=== PATIENT | male | born 1940 | race Caucasian/White ===

== ENCOUNTER → 2017-03-02 | Outpatient (CLI) | payer MEDICARE, OTHER ==
[~2017-03-02] MED LIST: LEVO500T80 PO; ONDA4TAB11 PO
--- NOTE | 2017-03-02 14:46 | Diagnostic Imaging Report ---
PROCEDURE: MRI lumbar spine. TECHNIQUE: Multiplanar, multisequence MRI of the lumbar spine was performed without contrast. INDICATION: Back pain. FINDINGS: Please note that there is a transitional lumbosacral junction with sacralization of L5 and small L5/S1 disc. There is satisfactory alignment of the lumbar spine. There are preserved vertebral body heights. There is disc desiccation at all levels. No significant disc height loss is seen. There is mild marrow edema along the upper endplate of L2 and to lesser extent L3 levels with no suspicious marrow signal abnormality. Also mild marrow edema around the facet joints at L4/L5 level bilaterally is seen. The cauda equina and conus medullaris appear grossly unremarkable. T12/L1: No disc herniation. There is no spinal canal or foraminal stenosis. L1/L2: There is a mild diffuse disc bulge and mild to moderate facet hypertrophy. There is mild central canal stenosis reducing the AP dimension of the canal to 9.8 mm. No significant lateral recess stenosis. The foramina demonstrate no narrowing. L2/L3: There is a diffuse disc bulge and moderate facet hypertrophy. There is diffuse disc bulge and bilateral moderate facet hypertrophy. There is mild to moderate central canal stenosis reducing the AP dimension of the canal to 8.4 mm. There is mild to moderate lateral recess stenosis also seen bilaterally. The foramina demonstrate mild narrowing bilaterally. L3/L4: There is a diffuse disc bulge and bilateral moderate facet hypertrophy. There is central canal stenosis of mild to moderate degree reducing the AP dimension of the canal to 8.9 mm. There is bilateral moderate lateral recess stenosis abutting the descending L4 nerve roots. There is bilateral foraminal stenosis moderate to severe on the left and moderate on the right side. L4/L5: There is a diffuse disc bulge asymmetric to the left and moderate to severe facet and ligamentous hypertrophy. This is associated with mild central canal stenosis reducing the AP dimension of the canal to 9.7 mm. There is bilateral severe lateral recess stenosis compressing the descending L5 nerve roots. The foramina demonstrate moderate stenosis on the left and mild to moderate stenosis on the right side. The far lateral aspect of the disc on both sides but more prominent on the left is abutting the exiting L4 spinal nerve on both sides. L5/S1: There is a small disc at this level with partial sacralization of L5 with prominent transverse processes articulating with the ileum. No disc herniation. No central canal or lateral recess stenosis. There is bilateral mild to moderate neural foraminal narrowing. IMPRESSION: 1. There is a transitional lumbosacral junction with a partially sacralized L5 and rudimentary disc at L5/S1 level. 2. There is bilateral severe lateral recess stenosis at L4/L5 level encroaching upon the descending L5 nerve roots seen. Other findings as above. Dictated by: Dictated on workstation # [id number]
== END ==
LOC: RAD 11:30
PROVIDERS: ATTEND Internal Medicine
DX: M48.06 Spinal stenosis, lumbar region (principal); M54.16 Radiculopathy, lumbar region
CPT/HCPCS: 72148

== ENCOUNTER 2017-06-01 10:41 | Emergency (ER) | payer MEDICARE, OTHER ==
[~2017-06-01] VITALS: Ht 188 cm; Wt 95.3 kg
[2017-06-01] MEDS ORDERED: LACTATED RINGERS 1,000 ML IV SCH (11:00)
--- NOTE | 2017-06-01 11:02 | ED General ---
General Stated Complaint: LUMBAR SURGERY/ DISORIENTATED Source of Information: Patient, Family Exam Limitations: No Limitations History of Present Illness Time Seen by Provider: 11:00 Initial Comments Brought to ER by his adult son with reports of general weakness. Patient had lumbar surgery at [facility] 7 days ago. He was having pain and tingling down the left leg prior to surgery. That symptom has significantly improved but he reports that he is so weak he can't hardly stand up. He reports minimal shortness of breath. No unilateral leg swelling. He states that he has not had a bowel movement in 7 days. States that he only dribbles when he tries to urinate that he cannot eat because he so nauseous. He denies fevers or chills or drainage from the incision. Timing/Duration: 6-7 Days Severity: Moderate Associated Systoms: No Chest Pain, No Cough, No Diaphoresis, No Fever/Chills, No Headaches, No Loss of Appetite, Malaise, Nausea/Vomiting, No Rash Allergies and Home Medications Allergies Coded Allergies: No Known Drug Allergies (Unverified , 10/04/15) Home Medications Levofloxacin 500 Mg Tablet, 500 MG PO DAILY, #6 Prescribed by: ROHINI RUIZ on 10/04/151739 Ondansetron 4 Mg Tab.rapdis, 4 MG PO Q6H PRN for NAUSEA/VOMITING, #8 Prescribed by: ROHINI RUIZ on 10/04/151739 Constitutional: see HPI, No chills, No diaphoresis, No fever, malaise, weakness EENTM: see HPI Respiratory: no symptoms reported Cardiovascular: no symptoms reported, No edema Genitourinary: no symptoms reported Musculoskeletal: see HPI, back pain (incisional pain rated at 5 out of 10) Skin: no symptoms reported Psychiatric/Neurological: No Symptoms Reported Hematologic/Lymphatic: No Symptoms Reported Immunological/Allergic: no symptoms reported Past Dgyjeeq-Xzamqv-Ymhmqq Hx Patient Social History Recent Foreign Travel: No Contact w/Someone Who Travel: No Surgeries HX Surgeries: No Respiratory Hx Respiratory Disorders: No Cardiovascular Hx Cardiac Disorders: Yes Cardiac Disorders: High Cholesterol Neurological Hx Neurological Disorders: No Gastrointestinal Hx Gastrointestinal Disorders: No Musculoskeletal Hx Musculoskeletal Disorders: No Endocrine Hx Endocrine Disorders: No HEENT HX ENT Disorders: No Cancer Hx Cancer: No Psychosocial Hx Psychiatric Problems: No Family Medical History Significant Family History: No Pertinent Family Hx Physical Exam Vital Signs Vital Sign - Last 12Hours 06/01/17 10:45 Temp 97.0 Pulse 88 Resp 16 B/P (MAP) 119/79 Pulse Ox 97 O2 Delivery Room Air Capillary Refill : General Appearance: No Apparent Distress, WD/WN, Other (he does appear very weak and requires assistance to get out of the wheelchair into the bed. Keeps his eyes closed when talking.) Eyes: Bilateral Eye EOMI, Bilateral Eye Normal Inspection, Bilateral Eye PERRL HEENT: PERRL/EOMI, TMs Normal Neck: Full Range of Motion, Normal Inspection Respiratory: Lungs Clear, Normal Breath Sounds, No Accessory Muscle Use, No Respiratory Distress Cardiovascular: Regular Rate, Rhythm, Normal Peripheral Pulses Gastrointestinal: Non Tender, Soft, Other (hypoactive bowel sounds. Abdomen is flat soft and nontender however.) Back: Normal Inspection, Other (midline lumbar incision clean dry and intact without surrounding erythema or drainage) Extremity: Normal Capillary Refill, Normal Inspection, No Pedal Edema Neurologic/Psychiatric: Alert, Oriented x3, No Motor/Sensory Deficits Skin: Normal Color, Warm/Dry Progress/Results/Core Measures Results/Orders Lab Results Laboratory Tests Test 06/01/17 10:56 06/01/17 12:52 Range/Units White Blood Count 8.1 4.3-11.0 10^3/uL Red Blood Count 4.90 4.35-5.85 10^6/uL Hemoglobin 14.8 13.3-17.7 G/DL Hematocrit 45 40-54 % Mean Corpuscular Volume 91 80-99 FL Mean Corpuscular Hemoglobin 30 25-34 PG Mean Corpuscular Hemoglobin Concent 33 32-36 G/DL Red Cell Distribution Width 13.0 10.0-14.5 % Platelet Count 247 130-400 10^3/uL Mean Platelet Volume 10.3 7.4-10.4 FL Neutrophils (%) (Auto) 61 42-75 % Lymphocytes (%) (Auto) 25 12-44 % Monocytes (%) (Auto) 9 0-12 % Eosinophils (%) (Auto) 4 0-10 % Basophils (%) (Auto) 1 0-10 % Neutrophils # (Auto) 4.9 1.8-7.8 X 10^3 Lymphocytes # (Auto) 2.1 1.0-4.0 X 10^3 Monocytes # (Auto) 0.8 0.0-1.0 X 10^3 Eosinophils # (Auto) 0.4 H 0.0-0.3 10^3/uL Basophils # (Auto) 0.1 0.0-0.1 10^3/uL Sodium Level 136 135-145 MMOL/L Potassium Level 4.0 3.6-5.0 MMOL/L Chloride Level 103 98-107 MMOL/L Carbon Dioxide Level 26 21-32 MMOL/L Anion Gap 7 5-14 MMOL/L Blood Urea Nitrogen 17 7-18 MG/DL Creatinine 0.98 0.60-1.30 MG/DL Estimat Glomerular Filtration Rate > 60 BUN/Creatinine Ratio 17 Glucose Level 93 70-105 MG/DL Calcium Level 9.7 8.5-10.1 MG/DL Total Bilirubin 0.6 0.1-1.0 MG/DL Aspartate Amino Transf (AST/SGOT) 24 5-34 U/L Alanine Aminotransferase (ALT/SGPT) 31 0-55 U/L Alkaline Phosphatase 87 40-136 U/L Troponin I < 0.30 <0.30 NG/ML Total Protein 6.8 6.4-8.2 GM/DL Albumin 3.8 3.2-4.5 GM/DL Urine Color YELLOW Urine Clarity CLEAR Urine pH 5 5-9 Urine Specific Avis 1.015 L 1.016-1.022 Urine Protein NEGATIVE NEGATIVE Urine Glucose (UA) NEGATIVE NEGATIVE Urine Ketones NEGATIVE NEGATIVE Urine Nitrite NEGATIVE NEGATIVE Urine Bilirubin NEGATIVE NEGATIVE Urine Urobilinogen NORMAL NORMAL MG/DL Urine Leukocyte Esterase NEGATIVE NEGATIVE Urine RBC (Auto) NEGATIVE NEGATIVE Urine RBC NONE /HPF Urine WBC NONE /HPF Urine Squamous Epithelial Cells RARE /HPF Urine Crystals NONE /LPF Urine Bacteria NEGATIVE /HPF Urine Casts NONE /LPF Urine Mucus NEGATIVE /LPF Urine Culture Indicated NO My Orders Orders - KEN CUMMINGS [employer] Cbc With Automated Diff (06/01/17 10:59) Comprehensive Metabolic Panel (06/01/17 10:59) Ua Culture If Indicated (06/01/17 10:59) Chest 1 View, Ap/Pa Only (06/01/17 10:59) Saline Lock/Iv-Start (06/01/17 10:59) Troponin I (06/01/17 10:59) Lactated Ringers (Lr 1000 Ml Iv Solution (06/01/17 11:00) Abdomen, Flat & Upright/Decub (06/01/17 11:43) Vital Signs/I&O Vital Sign - Last 12Hours 06/01/17 10:45 Temp 97.0 Pulse 88 Resp 16 B/P (MAP) 119/79 Pulse Ox 97 O2 Delivery Room Air Diagnostic Imaging Diagonstic Imaging: Xray Plain Films/CT/US/NM/MRI: chest Comments NAME: BLESSING SYKES [facility] REC#: [id number] PT STATUS: REG ER : 1940 PHYSICIAN: KEN CUMMINGS APRN ADMIT DATE: 06/01/17/ER Draft Date of Exam:06/01/17 CHEST 1 VIEW, AP/PA ONLY INDICATION: Weakness Frontal chest obtained at 1128 hrs, and compared with 10/04/15. Heart is borderline in size. Mediastinal silhouette is unremarkable. The lungs are clear. There is no pneumothorax or pleural fluid. IMPRESSION: No acute process in the chest. Dictated on workstation # [id number] Dict: 06/01/17 1137 Trans: 06/01/17 1141 ANOOP [id number] Interpreted by: DAYA MARCANO MD Electronically signed by: NAME: BLESSING SYKES [facility] REC#: [id number] PT STATUS: REG ER : 1940 PHYSICIAN: KEN CUMMINGS APRN ADMIT DATE: 06/01/17/ER Draft Date of Exam:06/01/17 ABDOMEN, FLAT & UPRIGHT/DECUB EXAMINATION: Upright and supine views of abdomen. INDICATION: Low back pain. FINDINGS: There is no pneumoperitoneum. No dilated bowel loops or significant air-fluid levels to suggest obstruction. Multiple calcifications in the pelvis are likely phleboliths. Moderate amounts of fecal material is seen in the rectum and the sigmoid colon. IMPRESSION: Moderate amounts of fecal material seen in the sigmoid colon and rectum. Dictated on workstation # [id number] Dict: 06/01/17 1218 Trans: 06/01/17 1225 TS [id number] Interpreted by: ANTHONY WOODS MD Electronically signed by: Departure Communication Progress Notes 1215-Son reports hes had father off of valium/flexeril for about 40 hours. Last oxycodone at 0730. I feel like the patient's weakness is secondary to oversedation from medication and the general weakness/deconditioning that follows a period of immobility. Impression Impression: Primary Impression: Physical deconditioning Additional Impression: General weakness Disposition: 01 HOME, SELF-CARE Condition: Stable Departure-Patient Inst. Referrals: MARY RUEDA DO (PCP/Family) Primary Care Physician KEN CUMMINGS APRN Jun 01, 2017 11:02
[2017-06-01 11:21] LABS: BASOPHILS # (AUTO) 0.1 10^3/uL (0.0-0.1); BASOPHILS % (AUTO) 1 % (0-10); EOSINOPHILS # (AUTO) 0.4 10^3/uL (0.0-0.3); EOSINOPHILS % (AUTO) 4 % (0-10); LYMPHOCYTES # (AUTO) 2.1 X 10^3 (1.0-4.0); LYMPHOCYTES % (AUTO) 25 % (12-44); MEAN CORPUSCULAR HEMOGLOBIN 30 PG (25-34); MEAN CORPUSCULAR HGB CONC 33 G/DL (32-36); MEAN CORPUSCULAR VOLUME 91 FL (80-99); MEAN PLATELET VOLUME 10.3 FL (7.4-10.4); MONOCYTES # (AUTO) 0.8 X 10^3 (0.0-1.0); MONOCYTES % (AUTO) 9 % (0-12); NEUTROPHILS # (AUTO) 4.9 X 10^3 (1.8-7.8); NEUTROPHILS % (AUTO) 61 % (42-75); PLATELET COUNT 247 10^3/uL (130-400); WHITE BLOOD COUNT 8.1 10^3/uL (4.3-11.0)
--- NOTE | 2017-06-01 11:42 | Diagnostic Imaging Report ---
INDICATION: Weakness Frontal chest obtained at 1128 hrs, and compared with 10/04/15. Heart is borderline in size. Mediastinal silhouette is unremarkable. The lungs are clear. There is no pneumothorax or pleural fluid. IMPRESSION: No acute process in the chest. Dictated by: Dictated on workstation # [id number]
[2017-06-01 11:48] LABS: ALANINE AMINOTRANSFERASE 31 U/L (0-55); ALBUMIN 3.8 GM/DL (3.2-4.5); ANION GAP 7 MMOL/L (5-14); ASPARTATE AMINO TRANSFERASE 24 U/L (5-34); BILIRUBIN,TOTAL 0.6 MG/DL (0.1-1.0); BLOOD UREA NITROGEN 17 MG/DL (7-18); BUN/CREATININE RATIO 17; CALCIUM 9.7 MG/DL (8.5-10.1); CARBON DIOXIDE 26 MMOL/L (21-32); CHLORIDE 103 MMOL/L (98-107); CREATININE SERUM 0.98 MG/DL (0.60-1.30); GFR ESTIMATED > 60; GLUCOSE 93 MG/DL (70-105); SODIUM 136 MMOL/L (135-145); TOTAL PROTEIN 6.8 GM/DL (6.4-8.2)
[2017-06-01 11:55] LABS: TROPONIN I < 0.30 NG/ML (<0.30)
--- NOTE | 2017-06-01 12:25 | Diagnostic Imaging Report ---
EXAMINATION: Upright and supine views of abdomen. INDICATION: Low back pain. FINDINGS: There is no pneumoperitoneum. No dilated bowel loops or significant air-fluid levels to suggest obstruction. Multiple calcifications in the pelvis are likely phleboliths. Moderate amounts of fecal material is seen in the rectum and the sigmoid colon. IMPRESSION: Moderate amounts of fecal material seen in the sigmoid colon and rectum. Dictated by: Dictated on workstation # [id number]
[2017-06-01 13:01] LABS: BILIRUBIN,URINE NEGATIVE (NEGATIVE); KETONES,URINE NEGATIVE (NEGATIVE); LEUKOCYTE ESTERASE ,URINE NEGATIVE (NEGATIVE); NITRITE,URINE NEGATIVE (NEGATIVE); PH,URINE 5 (5-9); PROTEIN,URINE NEGATIVE (NEGATIVE); UROBILINOGEN,URINE NORMAL (NORMAL)
[2017-06-01 13:14] LABS: SQUAMOUS EPITHELIAL CELL,UR RARE /HPF
[2017-06-01 15:46] VITALS: BP 100/61
[2017-06-01] MEDS ORDERED: TRAM50TA2 PO (16:28)
[2017-06-01] MEDS ORDERED: GABA-486 PO (16:28)
[2017-06-01] MEDS ORDERED: ALPR1TAB7 PO (16:28)
[2017-06-01] MEDS ORDERED: ESCI20TA45 PO (16:28)
[2017-06-01] MEDS ORDERED: OXYC-471 PO (16:28)
[2017-06-01] MEDS ORDERED: CYCL10TA9 PO (16:28)
[2017-06-01] MEDS ORDERED: ATOR80TA76 PO (16:28)
[2017-06-01] MEDS ORDERED: DIAZ5TAB3 PO (16:28)
[2017-06-01] MEDS ORDERED: DOCU100C37 PO (16:55)
[2017-06-01] MEDS ORDERED: RANI150T11 PO (16:55)
[2017-06-01] MEDS ORDERED: SENN8.6T62 PO (16:55)
[2017-06-03] MEDS ORDERED: NYST1000 PO (11:30)
== END 2017-06-01 15:46 | disposition other institution (70) ==
LOC: EDUNIT# 10:41 → ER 10:43
DX: R53.81 Other malaise (principal); R53.1 Weakness; E78.00 Pure hypercholesterolemia, unspecified; Z98.890 Other specified postprocedural states
CPT/HCPCS: 36415; 51702; 71010; 74020; 80053; 81000; 84484; 85025; 96360

== ENCOUNTER 2017-06-01 13:43 | Inpatient (IN) | payer MEDICARE, OTHER ==
[~2017-06-01] VITALS: Ht 188 cm; Wt 96.8 kg
[2017-06-01] MEDS ORDERED: CATHETER FLUSH 10 ML SYR IV PRN (16:00)
--- NOTE | 2017-06-01 16:24 | History & Physical-Hospitalist ---
HPI History of Present Illness: HPI/Chief Complaint CC: Weakness following lumbar spine surgery HPI: This is a 76yoWM clinic patient of Dr Cornell'aleksandra that had lumbar spine surgery by LARISSA at [facility] on 05/25/17 that was discharged the next day and went home with family but never felt like he was strong enough and began to have falls and wt loss. Labs were normal and vitals were normal so IRU was consulted and we have placed him there for recuperation. He was on Percocet and Flexeril but stopped those when he though those were making him weak. 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) Alcohol Use: Occasionally Uses Smoking Status: Unknown if Ever Smoked 2nd Hand Smoke Exposure: No Recent Foreign Travel: No Contact w/other who traveled: No Recent Hopitalizations: Yes (L4 L5 LUMBAR BACK SURGERY 05/25/17) Recent Infectious Disease Expo: No Seasonal Allergies Seasonal Allergies: No Surgeries HX Surgeries: Yes Surgeries: Orthopedic Respiratory Hx Respiratory Disorders: No Cardiovascular Hx Cardiovascular Disorders: Yes Cardiac Disorders: High Cholesterol Neurological Hx Neurological Disorders: No Genitourinary Hx Genitourinary Disorders: No Gastrointestinal Hx Gastrointestinal Disorders: No Musculoskeletal Hx Musculoskeletal Disorders: No Endocrine Hx Endocrine Disorders: No HEENT HX ENT Disorders: No Cancer Hx Cancer: No Psychosocial Hx Psychiatric Problems: No Family Medical History Significant Family History: No Pertinent Family Hx Review of Systems Constitutional: see HPI, dizziness, weakness EENTM: no symptoms reported Respiratory: no symptoms reported Cardiovascular: no symptoms reported Gastrointestinal: loss of appetite, nausea Genitourinary: no symptoms reported Musculoskeletal: back pain Skin: no symptoms reported Psychiatric/Neurological: No Symptoms Reported All Other Systems Reviewed Negative Unless Noted: Yes Physical Exam Physical Exam Vital Signs Capillary Refill : General Appearance: No Apparent Distress, WD/WN, Chronically ill, Thin, Other ( weak) Eyes: Bilateral Eye Normal Inspection, Bilateral Eye PERRL HEENT: PERRL/EOMI, Normal ENT Inspection, Pharynx Normal Neck: Full Range of Motion, Normal Inspection, Non Tender, Supple, Carotid Bruit Respiratory: Chest Non Tender, Lungs Clear, Normal Breath Sounds, No Accessory Muscle Use, No Respiratory Distress Cardiovascular: Regular Rate, Rhythm, No Edema, No Gallop, No JVD, No Murmur, Normal Peripheral Pulses Gastrointestinal: Normal Bowel Sounds, No Organomegaly, No Pulsatile Mass, Non Tender, Soft Back: Normal Inspection, No CVA Tenderness, No Vertebral Tenderness Extremity: Normal Capillary Refill, Normal Inspection, Normal Range of Motion, Non Tender, No Calf Tenderness, No Pedal Edema Neurologic/Psychiatric: Alert, Oriented x3, No Motor/Sensory Deficits, Normal Mood/Affect Skin: Normal Color, Warm/Dry Lymphatic: No Adenopathy Assessment/Plan Admission Diagnosis Assessment: Severe weakness following lumbar spine surgery POD # 7 Dehydration on exam HLP Depression DJD of spine Assessment and Plan Plan: IRU IVF 100 cc/hr Gentle pain meds BM regimen Increase PO nutrition Clinical Quality Measures DVT/VTE Risk/Contraindication: Risk Factor Score Per Nursin RFS Level Per Nursing on Admit: 3=High MEHREEN GALLAGHER DO Jun 01, 2017 16:24
[2017-06-01] MEDS ORDERED: CYCL10TA9 PO (16:28)
[2017-06-01] MEDS ORDERED: ALPR1TAB7 PO (16:28)
[2017-06-01] MEDS ORDERED: GABA-486 PO (16:28)
[2017-06-01] MEDS ORDERED: TRAM50TA2 PO (16:28)
[2017-06-01] MEDS ORDERED: OXYC-471 PO (16:28)
[2017-06-01] MEDS ORDERED: ESCI20TA45 PO (16:28)
[2017-06-01] MEDS ORDERED: ATOR80TA76 PO (16:28)
[2017-06-01] MEDS ORDERED: DIAZ5TAB3 PO (16:28)
[2017-06-01] MEDS ORDERED: ACETAMINOPHEN 500 MG TAB (TYLENOL) PO PRN (16:30)
[2017-06-01] MEDS ORDERED: LACTULOSE SYRUP 10GM/15ML (ENULOSE) 30ML UDC PO PRN (16:30)
[2017-06-01] MEDS ORDERED: ONDANSETRON 4 MG/2 ML (SDV) Z0FRAN IVP PRN (16:30)
[2017-06-01] MEDS ORDERED: IBUPROFEN TABLET 200 MG TAB PO PRN (16:30)
[2017-06-01 16:47] VITALS: BP 99/62
[2017-06-01] MEDS ORDERED: SENN8.6T62 PO (16:55)
[2017-06-01] MEDS ORDERED: DOCU100C37 PO (16:55)
[2017-06-01] MEDS ORDERED: RANI150T11 PO (16:55)
[2017-06-01] MEDS: NS IV 1000 ML 1,000 ML IV SCH (17:35)
[2017-06-01] MEDS ORDERED: ATORVASTATIN 80 MG (LIPITOR) TABLET PO SCH (21:00)
[2017-06-01] MEDS ORDERED: DOCUSATE SODIUM 100 MG (COLACE) CAP PO SCH (21:00)
[2017-06-01] MEDS ORDERED: SENNOSIDES 8.6 MG (SENOKOT) TAB PO SCH (21:00)
[2017-06-01] MEDS ORDERED: FAMOTIDINE 20 MG (PEPCID) TABLET PO SCH (21:00)
[2017-06-01] MEDS: NYSTATIN ORAL SUSP 5 ML UDC PO SCH (21:15)
[2017-06-02] MEDS: NS IV 1000 ML 1,000 ML IV SCH (03:39)
[2017-06-02 06:19] VITALS: BP 118/70
[2017-06-02] MEDS ORDERED: SENNOSIDES 8.6 MG (SENOKOT) TAB PO PRN (09:15)
[2017-06-02] MEDS ORDERED: ALPRAZolam 1 MG (XANAX) TAB PO PRN (09:15)
[2017-06-02] MEDS ORDERED: DOCUSATE SODIUM 100 MG (COLACE) CAP PO PRN (09:15)
--- NOTE | 2017-06-02 09:26 | Physical Therapy Evaluation ---
PT Evaluation-General Medical Diagnosis Admission Date Jun 01, 2017 at 13:43 Medical Diagnosis: weakness Onset Date: May 25, 2017 Therapy Diagnosis Therapy Diagnosis: impaired mobility, strength, endurance Height/Weight Height (Feet): 6 Height (Inches): 2.00 Weight (Pounds): 213 Weight (Ounces): 6.4 Precautions Precautions/Isolations: Fall Prevention, Standard Precautions Referral Physician: Brenton Reason for Referral: Evaluation/Treatment Medical History Additional Medical History high cholesterol, depression, DJD of spine Current History patient had lumbar spinal surgery on 05/25/17, went home the next day and had falls and weight loss Reviewed History: Yes Social History Home: Single Level Current Living Status: Spouse Entry Into Home: Stairs With Railing PT Steps Into Home: 2 Prior/Core FIM Prior Level of Function Functional [place] Measure 0=Not Assessed/NA 4=Minimal Assistance 1=Total Assistance 5=Supervision or Setup 2=Maximal Assistance 6=Modified [place] 3=Moderate Assistance 7=Complete [place] Bed Mobility: 7 Transfers (B,C,W/C) (FIM): 7 Gait: 7 before the surgery patient was not using an assistive device PT Evaluation-Current Subjective Patient in bed pre tx, agrees to PT, has pain of 6-7/10 in his low back Pt/Family Goals " to get stronger and decrease his pain" Objective Patient Orientation: Person, Place, Situation Attachments: IV ROM/Strength ROM Lower Extremities WNL except patient has very tight hamstrings Strenght Lower Extremities right lower extremity (hip flexion 4-/5, knee flexion 4/5, knee extension 4/5, dorsiflexion 4+/5), left lower extremity (hip flexion 4-/5, knee flexion 4/5, knee extension 4/5, dorsiflexion 4+/5) Integumentary/Posture Bowel Incontinence: No Neuromuscular (Tone, Coordination, Reflexes) WNL Sensory Vision: Wears Glasses Hearing: Functional Sensation Right Lower Extremit: Intact Sensation Left Lower Extremity: Intact Sensation Lower Extremities Patient has no complaints of numbness or tingling since his surgery. Transfers Functional [place] Measure 0=Not Assessed/NA 4=Minimal Assistance 1=Total Assistance 5=Supervision or Setup 2=Maximal Assistance 6=Modified [place] 3=Moderate Assistance 7=Complete IndependenceIRFPAI Quality Coding Scale 6 Independent with activity with or without an assistive device 5 Patient requires set up or clean up by helper. Patient completes activity by themselves 4 Supervision or touching assist (CGA). [place] provide cues , steadying assist 3 The helper provides less than half the effort to complete the activity 2 The helper provides more than half the effort to complete the activity 1 Dependent. The helper does all the effort to complete an activity 7 Patient refused to complete or attempt activity 9 The patient did not perform the activity before the current illness or injury 88 Not attempted due to Medical conditions or safety concerns Transfers (B, C, W/C) (FIM): 4 Scootin Rollin Roll Left to Right (QC): 4 Supine to/from Sit: 5 Sit to/from Stand: 4 Sit to Lying (QC): 4 Lying to Sitting/Side of Bed(Q: 4 Sit to Stand (QC): 4 Patient performs bed mobility with SBA, sit to stand with CGA, cues for safety and positioning Gait Does the Patient Walk?: Yes Mode of Locomotion: Walk Anticipated Mode of Locomotion: Walk Gait (FIM): 4 Walk 10 feet (QC): 4 Walk 50 ft with 2 Turns(QC): 4 Walk 150 ft (QC): 4 Walking 10ft/uneven surface-QC: 4 Distance: 150' Gait Level of Assist: 4 Gait Persons Needed: 1 Gait Assistive Device: FWW Comments/Gait Description Patient can ambulate 150' x2 with a rolling walker with CGA, including 50' with at least 2 turns of 90 degrees and 10' over an uneven surface. Ambulation is slightly antalgic and slow, some unsteadiness but no LOB. Wheelchair Training Does the Pt Use a Wheelchair?: No Stairs Stairs (FIM): 2 #of Steps: 4 Level of Assist: 4 1 Step (curb) (QC): 4 4 Steps (QC): 4 12 Steps (QC): 88 Patient can go up and down 4 steps using 2 handrails with CGA, cues for step placement Balance Sitting Static: Normal Sitting Dynamic: Normal Standing Static: Good Standing Dynamic: Good Picking up an Object (QC): 88 Treatment parallel bars exercises x20 (heel raises, mini-squats, hip abduction, marching) Assessment/Needs Patient has impaired mobility, strength, endurance post back surgery. Rehab Potential: Good PT Short Term Goals Short Term Goals Time Frame: Jun 09, 2017 Transfers (B,C,W/C) (FIM): 5 Gait (FIM): 5 Gait Distance Comment: 200' Gait Level of Assist: 5 Gait Assistive Device: FWW PT Glass Tube Bender Goals Mcc Goals PT Mcc Goals Time Frame: Jun 23, 2017 Transfers (B,C,W/C) (FIM): 6 Sit to Lying (QC): 6 Lying-Sitting on Side/Bed(QC): 6 Sit to Stand (QC): 6 Rollin Roll Left to Right (QC): 6 Car Transfer (QC): 4 Gait (FIM): 6 Distance: 300' Walk 10 feet (QC): 6 Walk 10ft-Uneven Surface(QC): 6 Walk 50ft with 2 Turns (QC): 6 Walk 150 ft (QC): 6 Gait Assistive Device: FWW Stairs (FIM): 4 # of Steps: 12 1 Step (curb) (QC): 4 4 Steps (QC): 4 12 Steps (QC): 4 Stairs Level Of Assist: 4 PT Plan Problem List Problem List: Activity Tolerance, Functional Strength, Safety, Balance, Gait, Transfer, Bed Mobility, ROM Treatment/Plan Treatment Plan: Continue Plan of Care Treatment Plan: Bed Mobility, Education, Functional Activity Tera, Functional Strength, Group Therapy, Gait, Safety, Therapeutic Exercise, Transfers Treatment Duration: Jun 23, 2017 Frequency: At least 5-7 days/Wk (IRF) Estimated Hrs Per Day: 1.5 hours per day Patient and/or Family Agrees t: Yes Safety Risks/Education Patient Education: Gait Training, Transfer Techniques, Steps, Correct Positioning, Safety Issues Teaching Recipient: Patient Teaching Methods: Demonstration, Discussion Response to Teaching: Reinforcement Needed Discharge Recommendations Plan Patient will perform bed mobility and transfer training, balance and endurance training, functional strengthening, stair training, gait training, and education , to improve functional mobility and independence at home. Therapy D/C Recommendations: Home w/ Family Support Time/GCodes Time In: 845 Time Out: 930 Total Billed Treatment Time: 45 Total Billed Treatment 1 visit EVL 15' EX 15' GT 15' KEISHA KYLE PT Jun 02, 2017 09:26
--- NOTE | 2017-06-02 09:29 | HISTORY AND PHYSICAL ---
DATE OF ADMISSION: 06/01/2017 CHIEF COMPLAINT: Difficulty with walking. 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 Ricardo MD neurosurgeon at [facility] in [place] on 05/25. He stayed overnight then went home with his and 2 sons. He had some postop confusion, weakness,dehydration and constipation, felt to be due to a combination of Flexeril and OxyIR and gabapentin. He presented to ED with an unsteady gait and abdominal x-ray revealed constipation. Chest x-ray was clear. Chemistry and CBC are within normal limits. He was felt be suffering from side effects of overmedication and postop opioid induced constipation. He has had a decline in his functional independence and was referred to Inpatient Rehabilitation Unit by Dr. Gallagher, hospitalist, PCP is Dr. Cornell. 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 His 2 sons who present to the unit with him. He did not use a cane or walker prior to this. CURRENT LEVEL OF FUNCTION: His mentation appears somewhat slowed but he is alert and oriented, appears somewhat groggy. He is min assist for transfers, and ambulation with hand-held assist. He has unsteady gait, impaired standing balance. He is set up for eating and grooming. Min assist for the remainder of his ADLs. He is reported to be continent of bladder. He has just had a bowel movement after prep was given. He is reported to be continent of bowel. He has had laser TURP in [place] in the past and reports no problems postoperatively. PAST MEDICAL HISTORY: 1. Hypercholesterolemia on Lipitor. 2. Depression on Lexapro. PAST SURGICAL HISTORY: As per above. No prior hip, knee or cervical spine surgery. FAMILY HISTORY: Noncontributory. SOCIAL HISTORY: Essentially as per above. Lives in [place], [place] with his spouse. REVIEW OF SYSTEMS: Ten-point review of systems significant for some grogginess, gait imbalance, and constipation. He reports significant improvement of his radicular pain into his legs postoperatively. He reports no difficulty voiding.C/O insomnia MEDICATIONS: 1. Tylenol 500 mg p.o. q.4 hours p.r.n. mild pain. 2. Ibuprofen 400 mg p.o. q.6 hours p.r.n. mild pain. 3. Lactulose 10 grams p.o. b.i.d. p.r.n. constipation. 4. Zofran 4 mg IV q.4 hours p.r.n. nausea, vomiting. 5. Tramadol 50 mg p.o. t.i.d. p.r.n. moderate pain. 5. Lipitor 20 mg po Q day 6.Lexapro 20 mg po Q day . PHYSICAL EXAMINATION: Significant for a pleasant male, appearing his stated age, appearing is somewhat groggy with somewhat slowed mentation, but alert and oriented in no acute distress. VITAL SIGNS: Within normal limits. He is afebrile. HEENT: Vision, speech, hearing, grossly intact. No oral lesion is noted. Speech is mildly slowed. NECK: Supple without mass. HEART: Regular rhythm. LUNGS: Clear. ABDOMEN: Soft, nontender. Bowel sounds present. EXTREMITIES: No lower leg edema. No calf tenderness. BACK: The incision site is healing well with debora in place. MUSCULOSKELETAL: The patient has functional active range of motion in all 4 extremities. NEUROLOGIC: Mentation appears mildly slowed. The patient appears somewhat groggy. He has impaired standing balance. Strength is functional both upper extremities.Lower extremity strength 4-/5 hip flex bilaterally knee extension 4/5, Dorsiflexion 4+/5 Sensation grossly intact to touch. Cognition appears somewhat slowed. Most likely medication related. IMPRESSION: 1. Ambulatory dysfunction secondary to postop confusion/constipation felt to be due to overmedication. 2. Postoperative constipation, improved with treatment. 3. Hypercholesteremia, on Lipitor. 4. Depression, on Lexapro. 5. BPH status post laser TURP. 6. Mild encephalopathy secondary to medication. PLAN: The patient is admitted for comprehensive program of inpatient rehabilitation with goal of maximizing level of functional independence prior to discharge home with spouse and home health care and sons. The patient will have PT/OT 90 minutes per day, each discipline, 5 days week for gait, strengthening, conditioning, balance, ADLs, any patient/family/caregiver training necessary, any adaptive equipment and training necessary. Speech therapy to do cognitive assessment and treat as indicated. He should clear and he is weaned from the muscle relaxants and uses less OxyIR. Rehabilitation nursing assist with bowel, bladder, skin, wound care, medication administration, pain management. care services manager to assist with discharge planning, community reentry. Follow-up with Dr. Gallagher in lieu of Dr. Cornell, PCP for any medical concerns. Therapy with fall precautions. ESTIMATED LENGTH OF STAY: 7 to 10 days. PROGNOSIS: Rehab prognosis appears good for goal of discharging home with spouse and home health care modified independent to supervision for ADLs and mobility skills. DIET: Regular. CODE STATUS: Full code. Job ID: [id number] Dictated Date: 06/01/2017 17:38:49 Water Plumber Date: 06/02/2017 09:01:18/kelby STARKEY
[2017-06-02] MEDS: NYSTATIN ORAL SUSP 5 ML UDC PO SCH ×4 (09:42→20:17)
[2017-06-02] MEDS: FAMOTIDINE 20 MG (PEPCID) TABLET PO SCH ×2 (09:42→20:17)
--- NOTE | 2017-06-02 10:01 | ST Cognitive Linguistic Eval ---
Speech Evaluation-General Medical Diagnosis Weakness s/p Lumbar Surgery Onset Date: May 25, 2017 Therapy Diagnosis Therapy Diagnosis: Cognitive Linguistic Function WNL Precautions Precautions/Isolations: Fall Prevention, Standard Precautions Referral Referring Physician: Dr. Deepak Farris Reason for Referral: Evaluation/Treatment Cognitive Evaluation Medical History Reviewed History: Yes Social History Current Living Status: Spouse Speech PLF-Current Status Prior Level of Function The patient denied challenges with cognition, speech, or language prior to admission or throughout his recent stay. Subjective The patient was recently admitted to [facility] Unit with a diagnosis of debility following lumbar surgery. The patient was laying in bed upon entrance and greeted the clinician appropriately. The patient was agreeable to participation in the cognitive evaluation on this date. Language Eval: Auditory Comprehends Simple Yes/No Ques: Functional Indent/Objects Multiple Reich: Functional Ident/Pics in Multiple Reich: Functional Follows 1-Step Commands: Functional Follows Complex Directions: Functional Follows General Conversations: Functional Language Eval: Verbal Language Completes Spontaneous Greeting: Functional Produces Auto, Serial Info: Functional Imitates Simple Words/Phrases: Functional Word Finding: Functional Requests Basic Needs: Functional States Basic Personal Info: Functional Expresses Complex Ideas: Functional Cognitive Patient Orientation The patient was independently oriented to month, day of week, date, and year. Objective Cognitive Domain Attention: WNL Memory: Mild Problem Solving: Functional Objective Impression The patient demonstrated cognitive linguistic skills grossly within normal limits and adequate for completion of ADL's. Communication/Social Cognition Comprehension: 5 Expression: 6 Social Interaction: 5 Problem Solvin Memory: 5 Speech Patient Assess Expression of Ideas/Wants: Expression (4) Understanding Vebal Content: Understands (4) Brief Interview-Mental Status: Yes Repetition of Three Words: Three (3) Temporal Orientation: Year: Correct (3) Temporal Orientation: Month: Accurate within 5 days(2) Temporal Orientation: Day: Correct (1) Recall : Wear to say "Sock": Yes, no cue required (2) Recall : Color: Yes, no cue required (2) Recall : Bed: No, could not recall (0) Speech-Plan Treatment Plan Speech Therapy Treatment Plan: Discontinue ST Evaluation, only. Frequency: Modified Program (IRF) Estimated Hrs Per Day: .25 hour per day (The patient will not receive skilled speech pathology services at this time.) Rehab Potential: Good Safety Risks/Education Teaching Recipient: Patient Teaching Methods: Discussion Response to Teaching: Verbalize Understanding Education Topics Provided: Results, Recommendations, Plan of Care Time Speech Therapy Time In: 08:05 Speech Therapy Time Out: 08:20 Total Billed Time: 15 Billed Treatment Time 1, ERICKA ARRIAZA Jun 02, 2017 10:00
--- NOTE | 2017-06-02 10:40 | Progress Note-Hospitalist ---
Progress Note HPI/CC on Admission CC: Weakness following lumbar spine surgery HPI: This is a 76yoWM clinic patient of Dr Cornell'aleksandra that had lumbar spine surgery by LARISSA at [facility] on 05/25/17 that was discharged the next day and went home with family but never felt like he was strong enough and began to have falls and wt loss. Labs were normal and vitals were normal so IRU was consulted and we have placed him there for recuperation. He was on Percocet and Flexeril but stopped those when he though those were making him weak. Progress Notes/Assess & Plan Date Seen 06/02/17 Time Seen by Provider: 09:45 Admission Dx/Process Assessment: Severe weakness following lumbar spine surgery POD # 7 Dehydration on exam HLP Depression DJD of spine Diagonsis/Assessment & Plan paste thinner: Fluids okay to DC Unsure if pt ate breakfast Pt feels better than yesterday. Pt was talking about stock market today Needs help with strengthening and balance Patient Interview: Pt feels much better today I informed pt that I will DC fluids if pt will eat and drink Pt was informed that I restarted most of his home meds Pt has had BMs Physical exam stable. Lungs sound perfect. Lower back dressing looks good. Stitches to come out next week. 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 Gallagher. OHRTENSIA GALLAGHER DO Jun 02, 2017 10:40
--- NOTE | 2017-06-02 11:28 | PM&R Post Admission Assessment ---
Post Admission Physician Asses The preadmission screen agrees with the post admission assessment that the patient is a good candidate for inpatient rehabilitation. The patient will have a comprehensive program of inpatient rehabilitation with a goal of maximizing level of functional independence prior to discharge home with spouse. The patient will have PT/OT ninety minutes per day, each discipline, five days a week for gait, strengthening, conditioning, balance, ADLs, any patient/family/caregiver training as necessary. Speech therapy to do cognitive assessment and treat as indicated. Rehabilitation nursing to assist with bowel, bladder, skin, wound care, medication administration, pain management. Delivery Consultant to assist with discharge planning, community reentry. SCD's for DVT prophylaxis. He appears to be well motivated to participate in three hours of therapy a day. He should be able to tolerate three hours of therapy a day from a medical and surgical standpoint. He should benefit from the three hours of therapy a day. He has a reasonable discharge plan, reasonable discharge rehabilitation goals and a supportive family. He has various comorbidities that need to be closely monitored with medications and treatments adjusted on a daily basis as needed. These include: Post-op confusion from over medication Insomnia Barriers to discharge for this patient who had been independent prior to this are for him to be modified independent to supervision for ADLs and mobility skills prior to discharge home with spouse, so as to lessen the burden of the caregivers. Risks for this patient include: 1. Fall 2. Fracture 3. DVT 4. Pulmonary embolism 5. Wound infection 6. Skin breakdown 7. Contractures 8. Poorly controlled pain 9. Urinary retention 10. UTI 11. Respiratory infection 12. Aspiration 13. worsening confusion and insomnia Estimated Length of Stay: 10 days Prognosis: Rehab prognosis appears good for goal of discharge home with spouse. modified independent to supervision for ADLs and mobility skills. OSKAR ZEPEDA MD Jun 02, 2017 11:27
--- NOTE | 2017-06-02 11:35 | Individualized Plan of Care ---
Individualized Plan of Care Rehab Nursing IPOC Order Admission Date Jun 01, 2017 at 13:43 Current Orders Orders Admission (Physician Order) (06/01/17 15:34) Iv / Invasive Line Insertion .on IV start (06/01/17 15:34) General/Regular (06/01/17 Dinner) Activity (06/01/17 ) Ns Iv 1000 Ml (Sodium Chloride 0.9%) (06/01/17 15:34) Initiate/Follow Protocol (06/01/17 15:34) Intake & Output 06,14,22 (06/01/17 15:34) Vital Signs: Every 4 Hours (06/01/17 15:34) Initiate Admission Nursing Pro .admission (06/01/17 15:34) Sequential Compression Device 08,20 (06/01/17 15:34) Ambulate TID (06/01/17 15:34) Code/Resuscitation (06/01/17 15:34) Initiate Admission Nursing Pro .admission (06/01/17 15:34) Sodium Chloride Flush (Catheter Flush Sy (06/01/17 16:00) Acetaminophen Tablet (Tylenol Tablet) (06/01/17 16:30) Ibuprofen Tablet (Motrin Tablet) (06/01/17 16:30) Lactulose Oral Solution (Enulose Oral So (06/01/17 16:30) Ondansetron Injection (Zofran Injectio (06/01/17 16:30) Tramadol Tablet (Ultram Tablet) (06/01/17 16:30) Admission-Acute Rehab Unit (06/01/17 17:17) Vital Signs: Routine 08,16,00 (06/01/17 17:17) Social Service (06/01/17 17:17) Rehab Nursing Orders-Ipoc (06/01/17 17:17) Physical Therapy Rehab Orders (06/01/17 17:17) Occupational Therapy Rehab Ord (06/01/17 17:17) Speech Therapy Rehab Orders (06/01/17 17:17) Turn And Reposition Q2HR (06/01/17 17:17) Intake & Output Shift Assessme 06,14,22 (06/01/17 17:17) Precautions (Aru) (06/01/17 17:17) Weekly Weight (Lbs) WEEK (06/01/17 17:17) Consult Physician (06/01/17 17:22) Atorvastatin Tablet (Lipitor Tablet) (06/01/17 21:00) Famotidine Tablet (Pepcid Tablet) (06/01/17 21:00) Docusate Sodium Capsule (Colace Capsule) (06/01/17 21:00) Sennosides Tablet (Senokot Tablet) (06/01/17 21:00) Nystatin Oral Suspension (Mycostatin O (06/01/17 21:00) Admission-Acute Rehab Unit (06/01/17 21:18) Alprazolam Tablet (Xanax Tablet) (06/02/17 09:15) Atorvastatin Tablet (Lipitor Tablet) (06/02/17 21:00) Docusate Sodium Capsule (Colace Capsule) (06/02/17 09:15) Sennosides Tablet (Senokot Tablet) (06/02/17 09:15) Famotidine Tablet (Pepcid Tablet) (06/02/17 09:18) Tramadol Tablet (Ultram Tablet) (06/02/17 09:30) Citalopram Tablet (Celexa Tablet) (06/02/17 09:28) Patient Visit (06/02/17 ) Speech Sound Lang Comp (06/02/17 ) Zolpidem Tablet (Ambien Tablet) (06/02/17 21:00) Rehab Nursing Orders: Diseage Management, Edu in Press Rel Techn, Hydration Management, Nutrition Management, Pain Management Other Nursing Orders: Monitor for urinary retention and constipation PT IPOC Problem List: Activity Tolerance, Functional Strength, Safety, Balance, Gait, Transfer, Bed Mobility, ROM Treatment Plan: Continue Plan of Care Bed Mobility, Education, Functional Activity Tera, Functional Strength, Group Therapy, Gait, Safety, Therapeutic Exercise, Transfers Treatment Duration: Jun 23, 2017 Frequency: At least 5-7 days/Wk (IRF) Estimated Hrs Per Day: 1.[address] IPOC Speech Therapy Treatment Plan: Discontinue ST Frequency: Modified Program (IRF) Estimated Hrs Per Day: .25 hour per day (The patient will not receive skilled speech pathology services at this time.) Physician IPOC Medical Issues being managed closely and that require the 24 hour availability of a physician:Postop confusion Insomnia dehydration pain management postop constipation Medical Issues: Bowel/Bladder Function, DVT Prophylaxis, Falls Precautions, Fluid/Electrolyte/Nutrition Balance, Infection Protection, Pain Management, Wound Care, Other (List) (as per above) Brief Synthesis of Preadmission Screen, Post-Admission Evaluation, and Therapy Evaluations: 76 yo male s/p Lumbar spine surgery OSH for HNP who had post op confusion and dehydration at home felt to be due to over medication Was utilizing Opiate and Flexeril and Gabapentin Presented to ED at this facility and referred to IRU by Hospitalist.Had been Independent prior to this and 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 Medical Prognosis: good Anticipated Length of Stay: 7-10 days Rehab Goals Modified Independent to supervision for adls and mobility skills Anticipated discharge destinat: Home with spouse with [facility] OSKAR ZEPEDA MD Jun 02, 2017 11:35
--- NOTE | 2017-06-02 12:09 | PM & R (SOAP) Progress Note ---
Subjective Time Seen by Provider: 07:45 Subjective/Events-last exam Patient was seen in his room this AM.C/O Insomnia.Appreciate DR Bernal notes Discussed case with RN .Will f/u Appreciate Therapy notes Patient min assist for transfers Review of Systems Neurological: Other (insomnia) Objective Exam Last Set of Vital Signs Vital Signs Date Time Temp Pulse Resp B/P (MAP) Pulse Ox O2 Delivery O2 Flow Rate FiO2 06/02/17 06:19 98.9 66 22 118/70 95 Room Air Capillary Refill : I&O Bad tableGeneral: Alert, Oriented X3, Cooperative, No Acute Distress HEENT: Atraumatic, PERRLA, EOMI, Mucous Memb Moist/[place] Neck: Supple, No JVD Lungs: Clear to Auscultation Heart: Regular Rate Abdomen: Normal Bowel Sounds, Soft, No Tenderness Extremities: No Edema Neuro: Other (Weakness Blower extrimities mild with tight hamstrings Confusion cleared) Assessment/Plan Assessment S/P Lumbar spine surgery for HNP OSH Post op confusion with dehydration and opioid induced constipation improved with change in meds and IVFS Bowel meds for constipation Insomnia Anxiey on meds HLP on statin Plan Contineu PT/OT/Pain management F/U with DR Gallagher et al PRN Treat insomnia OSKAR ZEPEDA MD Jun 02, 2017 12:09
--- NOTE | 2017-06-02 12:33 | Occupational Therapy Eval ---
OT Evaluation-General/PLF Medical Diagnosis Admission Date Jun 01, 2017 at 13:43 Medical Diagnosis: Weakness s/p Lumbar Surgery Onset Date: May 25, 2017 Therapy Diagnosis Therapy Diagnosis: decr self care, decr activity tolerance, weakness, decr safety awareness Height/Weight Height (Feet): 6 Height (Inches): 2.00 Weight (Pounds): 213 Weight (Ounces): 6.4 Precautions Precautions/Isolations: Fall Prevention, Standard Precautions Safety Interventions: None Referral Physician: Brenton Referral Reason: Evaluation/Treatment Medical History Additional Medical History Depression, TURP, DJD spine Current History Had laminectomy L4-5 on 05-25-17 and went home the next day. Had L lower extremity pain to his foot before surgery - reported it has decreased. Developed weakness, dehydration, nausea. Admitted through ED with dehydration, weakness, mild encephalopathy secondary to meds. Social History Home: Single Level Current Living Status: Spouse Entry Into Home: Stairs With Railing Steps Into Home: 3 ADL-Prior Level of Function ADL PLOF Comments Pt reported that he had been able to manage his basic self care needs prior to surgery. 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 He still drives, does his own yard work and likes to garden. 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 Pt said he was "comfortable" when asked about pain. Appearance Alert, cooperative, a little impulsive, decr safety awareness Mental Status/Objective Patient Orientation: Person, Place, Time, Situation Attachments: IV Current Glasses/Contacts: Yes Hearing Aids: No Dentures/Partials: No Hand Dominance: Right Upper Extremity ROM Grossly WFL bilat Upper Extremity Sensation No problems, per pt Upper Extremity Strength Grossly 4/5 bilat ADL-Treatment ADL-Current Pt reportd he does not have a back brace. On prompting, he said he wasn't to lift more than 5 pounds per arm or 10 pounds total, no bending or twisting. Chair alarm put in place due to impulsivity and decreased safety awareness Functional [place] Measure 0=Not Assessed/NA 4=Minimal Assistance 1=Total Assistance 5=Supervision or Setup 2=Maximal Assistance 6=Modified [place] 3=Moderate Assistance 7=Complete IndependenceIRFPAI Quality Coding Scale 6 Independent with activity with or without an assistive device 5 Patient requires set up or clean up by helper. Patient completes activity by themselves 4 Supervision or touching assist (CGA). [place] provide cues , steadying assist 3 The helper provides less than half the effort to complete the activity 2 The helper provides more than half the effort to complete the activity 1 Dependent. The helper does all the effort to complete an activity 7 Patient refused to complete or attempt activity 9 The patient did not perform the activity before the current illness or injury 88 Not attempted due to Medical conditions or safety concerns Eating (FIM): 6 (per pt report) Eating (QC): 6 Grooming (FIM): 5 (SBA at sink, with FWW, to shave, brush teeth, comb hair. Legs got a little wobbly by end of tx. Washed hair and hands in shower) Oral Hygiene (QC): 4 (supervision) Bathing (FIM): 5 (Washed and dried all parts with SBA when standing. Shower bench, grab bars, hand held shower. Supervision. Setup to cover IV and dressing on back. Pt education to sit to shower for safety.) Shower/Bathe Self (QC): 4 (supervision) Upper Body Dressing (FIM): 5 (setup) Upper Body Dressing (QC): 5 Lower Body Dressing (FIM): 5 (SBA when standing. pt educ to sit to undress, dress, for safety. Pt educ walker use during dressing) Lower Body Dressing (QC): 4 On/Off Footwear (QC): 4 (SBA/supervision, pt educ to sit to dress lower body.) Transfers (B, C, W/C) (FIM): 4 (Pt educ hand placement for sit to stand. Walked to bathroom with FWW and CGA. Pt educ benefits of using FWW) Shower Transfer (FIM): 4 (CGA, pt educ walker and hand placement. SHower bench , grab bars) Pt left up in recliner, chair alarm on, all needs met. All ADLs took longer than usual due to pt education and safety needs. Pt does not think he needs FWW but OT explained it is helpful for energy conservation and safety Education OT Patient Education: Modified ADL techniques, Purpose of tx/functional activities, Rehab process, Safety issues, Transfer techniques, Use of adapted equipment Teaching Recipient: Patient Teaching Methods: Demonstration, Discussion Response to Teaching: Verbalize Understanding, Return Demonstration, Reinforcement Needed OT Short Term Goals Short Term Goals Time Frame: Jun 09, 2017 Tub Transfer(FIM): 5 Shower Transfer(FIM): 5 1=Demonstrate adherence to instructed precautions during ADL tasks. 2=Patient will verbalize/demonstrate understanding of assistive devices/ modifications for ADL. 3=Patient will improve strength/tolerance for activity to enable patient to perform ADL's. OT Break Out Man Goals Prison Goals Time Frame: Jun 23, 2017 Eating (FIM): 7 Eating (QC): 6 Groomin Oral Hygiene (QC): 6 Bathing(FIM): 6 Shower/Bathe Self (QC): 6 Upper Body Dressing(FIM): 6 Upper Body Dressing (QC): 6 Lower Body Dressing(FIM): 6 Lower Body Dressing (QC): 6 On/Off Footwear (QC): 6 Toileting(FIM): 6 Toileting Hygiene (QC): 6 Toilet/Commode Transfer(FIM): 6 Toilet/Commode Transfer (QC): 6 Shower Transfer(FIM): 6 Additional Goals: 2-Verbalize Understanding, 3-ImproveStrength/Tera 1=Demonstrate adherence to instructed precautions during ADL tasks. 2=Patient will verbalize/demonstrate understanding of assistive devices/ modifications for ADL. 3=Patient will improve strength/tolerance for activity to enable patient to perform ADL's. OT Education/Plan Problem List/Assessment Assessment: Decreased Activ Tolerance, Decreased Safety Aware, Decreased UE Strength, Impaired Funct Balance, Impaired Self-Care Skills pt would benefit from skilled OT to increase his independence in basic self care to allow him to safely return to his home to live with his . Discharge Recommendations Plan/Recommendations: Continue POC Barriers to Progress decr safety awareness, impulsivity Treatment Plan/Plan of Care Treatment,Training & Education: Yes Patient would benefit from OT for education, treatment and training to promote independence in ADL's, mobility, safety and/or upper extremity function for ADL' s. Plan of Care: ADL Retraining, Functional Mobility, Group Exercise/Act as Ind ( education, exercise, activity tolerance, education, socialization), UE Funct Exercise/Act, UE Neuromus Re-Ed/Coord Treatment Duration: Jun 23, 2017 Frequency: Twice Daily (5-6 times a week) Estimated Hrs Per Day: 1.5 hours per day Agreement: Yes Rehab Potential: Good Time/GCodes Start Time: 10:00 Stop Time: 11:20 Total Time Billed (hr/min): 80 Billed Treatment Time visit, evaluation moderate intensity 20 minutes, ADL 60 minutes CASS CABRERA OT Jun 02, 2017 12:33
--- NOTE | 2017-06-02 15:34 | Occupational Ther Daily Note ---
OT Current Status-Daily Note Subjective Pt seen in room, up in bed, agreeable to OT. No pain mentioned. Appearance Alert, cooperative, visiting with his son Mental Status/Objective Functional [place] Measure 0=Not Assessed/NA 4=Minimal Assistance 1=Total Assistance 5=Supervision or Setup 2=Maximal Assistance 6=Modified [place] 3=Moderate Assistance 7=Complete [place] ADL-Treatment Pt transitioned supine to sit without assistance. Sit to stand with skilled cues for hand placement. Walked CGA, FWW to and from bathroom. Left up in recliner, chair alarm on, all needs met. Functional [place] Measure 0=Not Assessed/NA 4=Minimal Assistance 1=Total Assistance 5=Supervision or Setup 2=Maximal Assistance 6=Modified [place] 3=Moderate Assistance 7=Complete IndependenceIRFPAI Quality Coding Scale 6 Independent with activity with or without an assistive device 5 Patient requires set up or clean up by helper. Patient completes activity by themselves 4 Supervision or touching assist (CGA). [place] provide cues , steadying assist 3 The helper provides less than half the effort to complete the activity 2 The helper provides more than half the effort to complete the activity 1 Dependent. The helper does all the effort to complete an activity 7 Patient refused to complete or attempt activity 9 The patient did not perform the activity before the current illness or injury 88 Not attempted due to Medical conditions or safety concerns Toileting (FIM): 5 (SBA standing to pull pants up and down. Able to manage hygiene. Tall toilet, grab bar, FWW. Pt education walker placement during transfer) Toileting Hygiene (QC): 4 (supervision) Toilet/Commode Transfer (FIM): 4 (CGA, pt educ for walker placement, hand placement for transfer. Tall toilet, grab bar, FWW) Toilet Transfer (QC): 4 (CGA) Education OT Patient Education: Modified ADL techniques, Purpose of tx/functional activities, Safety issues, Transfer techniques Teaching Recipient: Patient Teaching Methods: Discussion Response to Teaching: Verbalize Understanding, Return Demonstration, Reinforcement Needed OT Short Term Goals Short Term Goals Time Frame: Jun 09, 2017 Tub Transfer(FIM): 5 Shower Transfer(FIM): 5 1=Demonstrate adherence to instructed precautions during ADL tasks. 2=Patient will verbalize/demonstrate understanding of assistive devices/ modifications for ADL. 3=Patient will improve strength/tolerance for activity to enable patient to perform ADL's. OT Penitentiary Goals Liner Inserter Goals Time Frame: Jun 23, 2017 Eating (FIM): 7 Eating (QC): 6 Groomin Oral Hygiene (QC): 6 Bathing(FIM): 6 Shower/Bathe Self (QC): 6 Upper Body Dressing(FIM): 6 Upper Body Dressing (QC): 6 Lower Body Dressing(FIM): 6 Lower Body Dressing (QC): 6 On/Off Footwear (QC): 6 Toileting(FIM): 6 Toileting Hygiene (QC): 6 Toilet/Commode Transfer(FIM): 6 Toilet/Commode Transfer (QC): 6 Shower Transfer(FIM): 6 Additional Goals: 2-Verbalize Understanding, 3-ImproveStrength/Tera 1=Demonstrate adherence to instructed precautions during ADL tasks. 2=Patient will verbalize/demonstrate understanding of assistive devices/ modifications for ADL. 3=Patient will improve strength/tolerance for activity to enable patient to perform ADL's. OT Education/Plan Problem List/Assessment pt would benefit from skilled OT to increase his independence in basic self care to allow him to safely return to his home to live with his . Discharge Recommendations Plan/Recommendations: Continue POC Treatment Plan/Plan of Care Patient would benefit from OT for education, treatment and training to promote independence in ADL's, mobility, safety and/or upper extremity function for ADL' s. Plan of Care: ADL Retraining, Functional Mobility, Group Exercise/Act as Ind ( education, exercise, activity tolerance, education, socialization), UE Funct Exercise/Act, UE Neuromus Re-Ed/Coord Treatment Duration: Jun 23, 2017 Frequency: Twice Daily (5-6 times a week) Estimated Hrs Per Day: 1.5 hours per day Agreement: Yes Rehab Potential: Good Time/GCodes Start Time: 13:00 Stop Time: 13:15 Total Time Billed (hr/min): 15 Billed Treatment Time visit, 15 minutes ADL CASS CABRERA OT Jun 02, 2017 15:33
--- NOTE | 2017-06-02 16:21 | Physical Therapy Daily Note ---
PT Daily Note-Current Subjective Agrees to PT. Reports he hopes to go home on Tuesday. Mental Status Patient Orientation: Person, Confused (slight; repeats self and asks the same questions several times. ), Place, Time, Situation Transfers Functional [place] Measure 0=Not Assessed/NA 4=Minimal Assistance 1=Total Assistance 5=Supervision or Setup 2=Maximal Assistance 6=Modified [place] 3=Moderate Assistance 7=Complete IndependenceIRFPAI Quality Coding Scale 6 Independent with activity with or without an assistive device 5 Patient requires set up or clean up by helper. Patient completes activity by themselves 4 Supervision or touching assist (CGA). [place] provide cues , steadying assist 3 The helper provides less than half the effort to complete the activity 2 The helper provides more than half the effort to complete the activity 1 Dependent. The helper does all the effort to complete an activity 7 Patient refused to complete or attempt activity 9 The patient did not perform the activity before the current illness or injury 88 Not attempted due to Medical conditions or safety concerns Sit to stand with CGA and skilled cuing for hand placement and safety. Performed this transfer x 8 reps to improve safety as well as LE strength. Gait Training Gait (FIM): 4 Distance (FIM): 3=150 ft Distance: 250 ft x 3 Gait Assistive Device: FWW CGA for safety and skilled cues for posture and gait pattern and safety with turning and walker management. Exercises Standing: Hamstring curls, Heel/toe raises, Marching, Mini squats Standing Reps: 15 (LE strength to improve transers) NuStep Minutes: 15 (To improve functional activity tolerance. ) Assessment Current Status: Good Progress Slightly diminished safety awareness. No noted LOB with gait or transfers but is slightly unsteady. PT Short Term Goals Short Term Goals Time Frame: Jun 09, 2017 Gait (FIM): 5 Gait Distance Comment: 200' Gait Level of Assist: 5 Gait Assistive Device: FWW PT Command Center Officer Goals Fdc Goals PT Command Center Officer Goals Time Frame: Jun 23, 2017 Transfers (B,C,W/C) (FIM): 6 Sit to Lying (QC): 6 Lying-Sitting on Side/Bed(QC): 6 Sit to Stand (QC): 6 Rollin Roll Left to Right (QC): 6 Car Transfer (QC): 4 Gait (FIM): 6 Distance: 300' Walk 10 feet (QC): 6 Walk 10ft-Uneven Surface(QC): 6 Walk 50ft with 2 Turns (QC): 6 Walk 150 ft (QC): 6 Gait Assistive Device: FWW Stairs (FIM): 4 # of Steps: 12 1 Step (curb) (QC): 4 4 Steps (QC): 4 12 Steps (QC): 4 Stairs Level Of Assist: 4 PT Plan Problem List Problem List: Activity Tolerance, Functional Strength, Safety Treatment/Plan Treatment Plan: Continue Plan of Care Treatment Plan: Bed Mobility, Education, Functional Activity Tera, Functional Strength, Group Therapy, Gait, Safety, Therapeutic Exercise, Transfers Treatment Duration: Jun 23, 2017 Frequency: At least 5-7 days/Wk (IRF) Estimated Hrs Per Day: 1.5 hours per day Patient and/or Family Agrees t: Yes Safety Risks/Education Patient Education: Transfer Techniques, Safety Issues Teaching Recipient: Patient Teaching Methods: Demonstration, Discussion Response to Teaching: Reinforcement Needed Discharge Recommendations Therapy D/C Recommendations: Physical Therapy Home Care Time/GCodes Time In: 1530 Time Out: 1615 Total Billed Treatment Time: 45 Total Billed Treatment visit GT 15 EX 30 SKYE FITZGERALD PT Jun 02, 2017 16:21
[2017-06-02 18:59] VITALS: BP 97/56
[2017-06-02] MEDS ORDERED: ATORVASTATIN 80 MG (LIPITOR) TABLET PO SCH (21:00)
[2017-06-02] MEDS ORDERED: ZOLPIDEM 5 MG (AMBIEN) TAB PO SCH (21:00)
[2017-06-03 05:51] VITALS: BP 107/76
[2017-06-03] MEDS: FAMOTIDINE 20 MG (PEPCID) TABLET PO SCH (09:39)
[2017-06-03] MEDS: NYSTATIN ORAL SUSP 5 ML UDC PO SCH ×2 (09:39→13:59)
--- NOTE | 2017-06-03 09:57 | Physical Therapy Daily Note ---
PT Daily Note-Current Subjective Patient sitting EOB pre tx, agrees to PT, has pain of 2/10 in his back. Appearance Patient on EOB post tx, has nurse call, phone, tray, all needs met. Mental Status Patient Orientation: Person, Place, Situation Transfers Functional [place] Measure 0=Not Assessed/NA 4=Minimal Assistance 1=Total Assistance 5=Supervision or Setup 2=Maximal Assistance 6=Modified [place] 3=Moderate Assistance 7=Complete IndependenceIRFPAI Quality Coding Scale 6 Independent with activity with or without an assistive device 5 Patient requires set up or clean up by helper. Patient completes activity by themselves 4 Supervision or touching assist (CGA). [place] provide cues , steadying assist 3 The helper provides less than half the effort to complete the activity 2 The helper provides more than half the effort to complete the activity 1 Dependent. The helper does all the effort to complete an activity 7 Patient refused to complete or attempt activity 9 The patient did not perform the activity before the current illness or injury 88 Not attempted due to Medical conditions or safety concerns Transfers (B, C, W/C) (FIM): 5 Scootin Rollin Roll Left to Right (QC): 6 Supine to/from Sit: 6 Sit to/from Stand: 5 Sit to Lying (QC): 6 Sit to Stand (QC): 4 Patient performs bed mobility with mod I, sit to stand with SBA. Gait Training Does the Patient Walk?: Yes Gait (FIM): 5 Distance: 1000'x2 Walk 10 feet (QC): 4 Walk 50 ft with 2 Turns(QC): 4 Walk 150 ft (QC): 4 Walking 10ft/uneven surface-QC: 4 Gait Level of Assist: 5 Gait Persons Needed: 1 Gait Assistive Device: Cane Single Point Patient can ambulate 1000' with a SPC with SBA, including 50' with at least 2 turns of 90 degrees and 10' over an uneven surface. Patient performed the Tinetti Balance Assessment and scored a 21/28 indicating he is at a moderate risk of falling, so he was given a SPC for an assistive device. Patient ambulated outdoors over community surfaces, ramps, curbs, etc. Wheelchair Training Does the Pt Use a Wheelchair?: No Stair Training Stair Training: Handrails/: 2 handrails Stairs (FIM): 5 #of Steps: 12 1 Step (curb) (QC): 4 4 Steps (QC): 4 12 Steps (QC): 4 Stairs: Pattern: Step to Level of Assist: 5 Patient can go up and down 12 steps using 2 handrails with SBA. He does need occasional cues for safety and to slow down. Exercises NuStep Minutes: 15 NuStep Workload: 6 Neuromuscular Tinetti Balance Assessment Treatments bed mobility and transfers, ambulation, stair training, balance testing, functional strengthening Assessment Current Status: Fair Progress Patient is improving with balance and endurance PT Short Term Goals Short Term Goals Time Frame: Jun 09, 2017 Gait (FIM): 5 Gait Distance Comment: 200' Gait Level of Assist: 5 Gait Assistive Device: FWW PT Mcfp Goals Mcfp Goals PT Mcfp Goals Time Frame: Jun 23, 2017 Transfers (B,C,W/C) (FIM): 6 Sit to Lying (QC): 6 (et) Lying-Sitting on Side/Bed(QC): 6 (et) Sit to Stand (QC): 6 (met) Rollin (met) Roll Left to Right (QC): 6 (met) Car Transfer (QC): 4 Gait (FIM): 6 Distance: 300' Walk 10 feet (QC): 6 Walk 10ft-Uneven Surface(QC): 6 Walk 50ft with 2 Turns (QC): 6 Walk 150 ft (QC): 6 Gait Assistive Device: FWW Stairs (FIM): 4 (met) # of Steps: 12 (met) 1 Step (curb) (QC): 4 (et) 4 Steps (QC): 4 (met) 12 Steps (QC): 4 (met) Stairs Level Of Assist: 4 (met) PT Plan Problem List Problem List: Activity Tolerance, Functional Strength, Safety, Balance, Gait, Transfer Treatment/Plan Treatment Plan: Continue Plan of Care Treatment Plan: Bed Mobility, Education, Functional Activity Tera, Functional Strength, Group Therapy, Gait, Safety, Therapeutic Exercise, Transfers Treatment Duration: Jun 23, 2017 Frequency: At least 5-7 days/Wk (IRF) Estimated Hrs Per Day: 1.5 hours per day Patient and/or Family Agrees t: Yes Safety Risks/Education Patient Education: Gait Training, Transfer Techniques, Steps, Correct Positioning, Safety Issues Teaching Recipient: Patient Teaching Methods: Demonstration, Discussion Response to Teaching: Reinforcement Needed Time/GCodes Time In: 900 Time Out: 1000 Total Billed Treatment Time: 60 Total Billed Treatment 1 visit EX 15' GT 30 NM 15' KEISHA KYLE PT Jun 03, 2017 09:57
[2017-06-03] MEDS ORDERED: NYST1000 PO (11:30)
--- NOTE | 2017-06-03 11:35 | Discharge Summary-Hospitalist ---
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 Pt was talking about stock market today Needs help with strengthening and balance Patient Interview: Pt feels much better today I informed pt that I will DC fluids if pt will eat and drink Pt was informed that I restarted most of his home meds Pt has had BMs Physical exam stable. Lungs sound perfect. Lower back dressing looks good. Stitches to come out next week. 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 Gallagher. Reason Hospital Visit/Course CC: Weakness following lumbar spine surgery HPI: This is a 76yoWM clinic patient of Dr Cornell's that had lumbar spine surgery by NSJulia at [facility] on 05/25/17 that was discharged the next day and went home with family but never felt like he was strong enough and began to have falls and wt loss. Labs were normal and vitals were normal so IRU was consulted and we have placed him there for recuperation. He was on Percocet and Flexeril but stopped those when he though those were making him weak. Note from 05/2017: Patient feels much better and 100 percent improved from Tuesday when he came in Walking well and using a cane ready to go back to work Eating and drinking well and bowel movements are normal No falls Feels very comfortable about going home Hospital course: Patient had a very short hospital course he was very debilitated and weak when he came and required IV fluids due to dehydration and adequate nutrition was recommended and he was compliant with all rehabilitation services and rapidly recovered back to his baseline and on 06/03/17 he was deemed stable for discharge and I completed her his medication reconciliation at discharge and he will only take tramadol for pain and he will complete outpatient physical therapy. Discharge Summary Discharge Physical Examination Allergies: Coded Allergies: No Known Drug Allergies (Unverified , 10/04/15) Vitals & I&Os Vital Signs Date Time Temp Pulse Resp B/P (MAP) Pulse Ox O2 Delivery O2 Flow Rate FiO2 06/03/17 05:51 96.7 70 16 107/76 97 06/02/17 18:59 Room Air Discharge Home Medications: Active Scripts Active Nystatin 100,000 Unit/1 Ml Oral.susp 5 Ml PO QID Reported Vegetable Laxative (Sennosides) 8.6 Mg Tablet 8.6 Mg PO HS PRN Docusate Sodium 100 Mg Capsule 100 Mg PO DAILY PRN Ranitidine HCl 150 Mg Tablet 150 Mg PO BID Escitalopram Oxalate 20 Mg Tablet 20 Mg PO DAILY Atorvastatin Calcium 80 Mg Tablet 80 Mg PO HS Tramadol HCl 50 Mg Tablet 50 Mg PO Q6H PRN HAS BEEN HOLDING SINCE SURGERY Gabapentin 100 Mg Capsule 100 Mg PO TID PRN Alprazolam 1 Mg Tablet 1 Mg PO TID PRN ALTERNATING WITH DIAZEPAM Cyclobenzaprine HCl 10 Mg Tablet 10 Mg PO TID PRN Oxycodone-Acetaminophen 5-325 (Oxycodone HCl/Acetaminophen) 1 Each Tablet 1 Tab PO Q4H PRN Diazepam 5 Mg Tablet 5 Mg PO QID PRN ALTERNATING WITH ALPRAZOLAM / MAY ALSO TAKE FOR MUSCLE SPASMS Instructions to patient/family Please see electonic discharge instructions given to patient. Clinical Quality Measures DVT/VTE Risk/Contraindication: Risk Factor Score Per Nursin RFS Level Per Nursing on Admit: 3=High HORTENSIA GALLAGHER DO Jun 03, 2017 11:35
--- NOTE | 2017-06-03 14:24 | Therapy Team Discharge Summary ---
Therapy Discharge Summary Discharge Recommendations Date of Discharge Therapy D/C Recommendations: Physical Therapy Home Care Physical Therapy Patient came to rehab with weakness. Upon admission patient performed bed mobility with SBA, sit to stand with CGA, ambulated 150' x2 with a rolling walker with CGA, and went up and down 4 steps using 2 handrails with CGA. Patient has been performing bed mobility and transfer training, balance and endurance training, functional strengthening, stair training, gait training, and education. Patient has made fair progress during his short stay but has not met his ambulation goals. Now, patient performs bed mobility with mod I, and transfers with SBA, he ambulates 1000' with a SPC with SBA, including 50' with at least 2 turns of 90 degrees and 10' over an uneven surface, and he can go up and down 12 steps using 2 handrails with SBA. Patient scored a 21/28 on the Tinetti Assessment and does well ambulating with a single point cane. Patient is discharging from this facility today and will be discharged from PT today. PT Correction Goals Scanning Clerk Goals PT Correction Goals Time Frame: Jun 23, 2017 Transfers (B,C,W/C) (FIM): 6 Roll Left to Right (QC): 6 (met) Sit to Lying (QC): 6 (et) Lying-Sitting on Side/Bed(QC): 6 (et) Sit to Stand (QC): 6 (met) Car Transfer (QC): 4 Gait (FIM): 6 Distance: 300' Walk 10 feet (QC): 6 Walk 10ft-Uneven Surface(QC): 6 Walk 50ft with 2 Turns (QC): 6 Walk 150 ft (QC): 6 Gait Assistive Device: FWW Stairs (FIM): 4 (met) # of Steps: 12 (met) 1 Step (curb) (QC): 4 (et) 4 Steps (QC): 4 (met) 12 Steps (QC): 4 (met) Stairs Level Of Assist: 4 (met) OT Scanning Clerk Goals Scanning Clerk Goals Time Frame: Jun 23, 2017 Eating (FIM): 7 Eating (QC): 6 Oral Hygiene (QC): 6 Grooming(FIM): 6 Bathing(FIM): 6 Shower/Bathe Self (QC): 6 Upper Body Dressing(FIM): 6 Upper Body Dressing (QC): 6 Lower Body Dressing(FIM): 6 Lower Body Dressing (QC): 6 On/Off Footwear (QC): 6 Toileting(FIM): 6 Toileting Hygiene (QC): 6 Toilet/Commode Transfer(FIM): 6 Toilet/Commode Transfer (QC): 6 Shower Transfer(FIM): 6 Additional Goals: 2-Verbalize Understanding, 3-ImproveStrength/Tera 1=Demonstrate adherence to instructed precautions during ADL tasks. 2=Patient will verbalize/demonstrate understanding of assistive devices/ modifications for ADL. 3=Patient will improve strength/tolerance for activity to enable patient to perform ADL's. KEISHA KYLE PT Jun 03, 2017 14:24
--- NOTE | 2017-06-03 14:50 | PM & R (SOAP) Progress Note ---
Subjective Time Seen by Provider: 14:25 Subjective/Events-last exam Patient was seen in his room this afternoon Appreciate Therapy and DR Bernal notes and orders Patient anxious to get home this weekend and convert over to OUtpatient services.Patient SBA to Modified Independent for gait with cane Objective Exam Last Set of Vital Signs Vital Signs Date Time Temp Pulse Resp B/P (MAP) Pulse Ox O2 Delivery O2 Flow Rate FiO2 06/03/17 09:00 Room Air 06/03/17 05:51 96.7 70 16 107/76 97 Capillary Refill : I&O Intake and Output 06/03/17 00:00 Intake Total 1940 ml Output Total 725 ml Balance 1215 ml Intake Oral 940 ml IV Total 1000 ml Output Urine Total 725 ml # Voids 5 # Bowel Movements 3 General: Alert, Oriented X3, Cooperative, No Acute Distress HEENT: Atraumatic, PERRLA, EOMI, Mucous Memb Moist/[place] Neck: Supple, No JVD Lungs: Clear to Auscultation Heart: Regular Rate Abdomen: Normal Bowel Sounds, Soft, No Tenderness Extremities: No Edema Neuro: Other (Weakness Blower extrimities mild with tight hamstrings Confusion cleared) Assessment/Plan Assessment S/P Lumbar spine surgery for HNP OSH Post op confusion with dehydration and opioid induced constipation improved with change in meds and IVFS Bowel meds for constipation Insomnia Anxiey on meds HLP on statin Plan Discharge today to home with spouse with f/u outpatient therapies See orders f/u with PCP and Spine surgeon OSKAR ZEPEDA MD Jun 03, 2017 14:50
--- NOTE | 2017-06-03 15:34 | Occupational Ther Daily Note ---
OT Current Status-Daily Note Subjective Pt seen in room, up in bed, agreeable to OT. Pt stated that he would like to go home on Tuesday. No pain mentioned. Appearance Alert, cooperative, still a little impulsive Mental Status/Objective Patient Orientation: Person, Place, Time, Situation Functional [place] Measure 0=Not Assessed/NA 4=Minimal Assistance 1=Total Assistance 5=Supervision or Setup 2=Maximal Assistance 6=Modified [place] 3=Moderate Assistance 7=Complete [place] Attachments: Saline Lock ADL-Treatment Functional [place] Measure 0=Not Assessed/NA 4=Minimal Assistance 1=Total Assistance 5=Supervision or Setup 2=Maximal Assistance 6=Modified [place] 3=Moderate Assistance 7=Complete IndependenceIRFPAI Quality Coding Scale 6 Independent with activity with or without an assistive device 5 Patient requires set up or clean up by helper. Patient completes activity by themselves 4 Supervision or touching assist (CGA). [place] provide cues , steadying assist 3 The helper provides less than half the effort to complete the activity 2 The helper provides more than half the effort to complete the activity 1 Dependent. The helper does all the effort to complete an activity 7 Patient refused to complete or attempt activity 9 The patient did not perform the activity before the current illness or injury 88 Not attempted due to Medical conditions or safety concerns Eating (FIM): 7 (Able to open packages, cut food, feed himself without difficulty) Eating (QC): 6 Grooming (FIM): 5 (SBA, standing at sink to brush teeth and comb hair. Single point cane Pt is a little wobbly but no LOB) Oral Hygiene (QC): 4 (Supervision) Bathing (FIM): 5 (Pt washed and dried all parts except back with setup, supervision when standing to wash bottom. Shower bench, grab bar, hand held shower) Shower/Bathe Self (QC): 4 (supervision) Upper Body (FIM): 5 (setup. ) Upper Body Dressing (QC): 5 (setup) Lower Body Dressing (FIM): 5 (supervision for standing. pt educationto sit to undress and dress, for safety, due to wobbliness. SPC) Lower Body Dressing (QC): 4 (supervision ) On/Off Footwear (QC): 4 (supervision so that he doesn't stand to take socks off or step into shoes, for safety) Toileting (FIM): 5 (SBA for clothing management. tall toielt, grab bar) Toileting Hygiene (QC): 4 (SBA/supervision) Transfers (B, C, W/C) (FIM): 5 (SBA, SPC. Some unsteadiness observed when walking but no LOB) Toilet/Commode Transfer (FIM): 5 (SBA, for safety. Tall toilet, grab bar) Toilet Transfer (QC): 4 (supervision) Shower Transfer(FIM): 5 (SBA for safety, shower bench, grab bar) Other Treatment Pt walked with SBA for safety, SPC to gym. Did 12 minutes bilat UE exercise with arm bike set at 15 W resistance. Worked at steady pace, with no breaks. Pt also did 15 reps of 4 different exercises with red theraband (medium resistance) . All exercises to strengthen arms to help with balance and transfers. Pt walked back to his room, up in bed with bed alarm on, all needs met. Education OT Patient Education: Modified ADL techniques, Purpose of tx/functional activities, Reviewed precautions, Safety issues, Transfer techniques Teaching Recipient: Patient Teaching Methods: Discussion Response to Teaching: Verbalize Understanding, Return Demonstration, Reinforcement Needed OT Short Term Goals Short Term Goals Time Frame: Jun 09, 2017 Tub Transfer(FIM): 5 Shower Transfer(FIM): 5 1=Demonstrate adherence to instructed precautions during ADL tasks. 2=Patient will verbalize/demonstrate understanding of assistive devices/ modifications for ADL. 3=Patient will improve strength/tolerance for activity to enable patient to perform ADL's. OT Gifted Program Teacher Goals Skilled Nursing Goals Time Frame: Jun 23, 2017 Eating (FIM): 7 Eating (QC): 6 Groomin Oral Hygiene (QC): 6 Bathing(FIM): 6 Shower/Bathe Self (QC): 6 Upper Body Dressing(FIM): 6 Upper Body Dressing (QC): 6 Lower Body Dressing(FIM): 6 Lower Body Dressing (QC): 6 On/Off Footwear (QC): 6 Toileting(FIM): 6 Toileting Hygiene (QC): 6 Toilet/Commode Transfer(FIM): 6 Toilet/Commode Transfer (QC): 6 Shower Transfer(FIM): 6 Additional Goals: 2-Verbalize Understanding, 3-ImproveStrength/Tear 1=Demonstrate adherence to instructed precautions during ADL tasks. 2=Patient will verbalize/demonstrate understanding of assistive devices/ modifications for ADL. 3=Patient will improve strength/tolerance for activity to enable patient to perform ADL's. OT Education/Plan Problem List/Assessment pt would benefit from skilled OT to increase his independence in basic self care to allow him to safely return to his home to live with his . Discharge Recommendations Plan/Recommendations: Continue POC Treatment Plan/Plan of Care Patient would benefit from OT for education, treatment and training to promote independence in ADL's, mobility, safety and/or upper extremity function for ADL' s. Plan of Care: ADL Retraining, Functional Mobility, Group Exercise/Act as Ind ( education, exercise, activity tolerance, education, socialization), UE Funct Exercise/Act, UE Neuromus Re-Ed/Coord Treatment Duration: Jun 23, 2017 Frequency: Twice Daily (5-6 times a week) Estimated Hrs Per Day: 1.5 hours per day Agreement: Yes Rehab Potential: Good Time/GCodes Start Time: 10:00 Stop Time: 11:00 Total Time Billed (hr/min): 60 Billed Treatment Time visit, 30 minutes ADL, 30 minutes exercise CASS CABRERA OT Jun 03, 2017 15:34
[2017-06-03 15:42] VITALS: BP 107/76
--- NOTE | 2017-06-03 16:04 | Occupational Ther Daily Note ---
OT Current Status-Daily Note Subjective Pt seen in room with son, now reporting that he is going home this afternoon. Pt agreeable for family education. Mental Status/Objective Functional [place] Measure 0=Not Assessed/NA 4=Minimal Assistance 1=Total Assistance 5=Supervision or Setup 2=Maximal Assistance 6=Modified [place] 3=Moderate Assistance 7=Complete [place] ADL-Treatment Functional [place] Measure 0=Not Assessed/NA 4=Minimal Assistance 1=Total Assistance 5=Supervision or Setup 2=Maximal Assistance 6=Modified [place] 3=Moderate Assistance 7=Complete IndependenceIRFPAI Quality Coding Scale 6 Independent with activity with or without an assistive device 5 Patient requires set up or clean up by helper. Patient completes activity by themselves 4 Supervision or touching assist (CGA). [place] provide cues , steadying assist 3 The helper provides less than half the effort to complete the activity 2 The helper provides more than half the effort to complete the activity 1 Dependent. The helper does all the effort to complete an activity 7 Patient refused to complete or attempt activity 9 The patient did not perform the activity before the current illness or injury 88 Not attempted due to Medical conditions or safety concerns Other Treatment Information shared with patient and his son. Due to patient's unsteadiness, OT is recommending supervision for the standing/walking portions of his ADLs. It is also recommended that he sit to dress and bathe. Pt reported that he has a shower chair at home and mentioned a bench in their bedroom that he can use for dressing. Pt and son verbalized understanding of these recommendations for safety and will follow them until he returns to see his surgeon. All needs met. Education OT Patient Education: Instructions to caregiver, Safety issues Teaching Recipient: Patient, Family (son) Teaching Methods: Discussion Response to Teaching: Verbalize Understanding OT Short Term Goals Short Term Goals Time Frame: Jun 09, 2017 Tub Transfer(FIM): 5 Shower Transfer(FIM): 5 1=Demonstrate adherence to instructed precautions during ADL tasks. 2=Patient will verbalize/demonstrate understanding of assistive devices/ modifications for ADL. 3=Patient will improve strength/tolerance for activity to enable patient to perform ADL's. OT Nursing Home Goals Rn Diabetes Educator Goals Time Frame: Jun 23, 2017 Eating (FIM): 7 (met 06-03-17) Eating (QC): 6 (met 06-03-17) Groomin (not met 06-03-17) Oral Hygiene (QC): 6 (not met 06-03-17) Bathing(FIM): 6 (not met 06-03-17) Shower/Bathe Self (QC): 6 (not met 06-03-17) Upper Body Dressing(FIM): 6 (not met 06-03-17) Upper Body Dressing (QC): 6 (not met 06-03-17) Lower Body Dressing(FIM): 6 (not met 06-03-17) Lower Body Dressing (QC): 6 (not met 06-03-17) On/Off Footwear (QC): 6 (not met 06-03-17) Toileting(FIM): 6 (not met 06-03-17) Toileting Hygiene (QC): 6 (not met 06-03-17) Toilet/Commode Transfer(FIM): 6 (not met 06-03-17) Toilet/Commode Transfer (QC): 6 (not met 06-03-17) Shower Transfer(FIM): 6 (not met 06-03-17) Additional Goals: 2-Verbalize Understanding, 3-ImproveStrength/Tera 1=Demonstrate adherence to instructed precautions during ADL tasks. 2=Patient will verbalize/demonstrate understanding of assistive devices/ modifications for ADL. 3=Patient will improve strength/tolerance for activity to enable patient to perform ADL's. OT Education/Plan Problem List/Assessment pt would benefit from skilled OT to increase his independence in basic self care to allow him to safely return to his home to live with his . Discharge Recommendations Plan/Recommendations: Discharge/Goals Met ( see tx plan for goals met) Treatment Plan/Plan of Care Patient would benefit from OT for education, treatment and training to promote independence in ADL's, mobility, safety and/or upper extremity function for ADL' s. Plan of Care: ADL Retraining, Functional Mobility, Group Exercise/Act as Ind ( education, exercise, activity tolerance, education, socialization), UE Funct Exercise/Act, UE Neuromus Re-Ed/Coord Treatment Duration: Jun 23, 2017 Frequency: Twice Daily (5-6 times a week) Estimated Hrs Per Day: 1.5 hours per day Agreement: Yes Rehab Potential: Good Time/GCodes Start Time: 12:05 Stop Time: 12:15 Total Time Billed (hr/min): 10 Billed Treatment Time visit, 10 minutes ADL CASS CABRERA OT Jun 03, 2017 16:04
--- NOTE | 2017-06-03 16:10 | Therapy Team Discharge Summary ---
Therapy Discharge Summary Discharge Recommendations Date of Discharge Therapy D/C Recommendations: Home w/ Family Support, Physical Therapy Home Care Occupational Therapy Pt seen for skilled OT to increase his independence in basic self care. On admission he needed SBA/supervision for ADLs and CGA for transfers, including toilet and shower transfers. By discharge he was SBA for transfers and ADLs, due to unsteadiness when standing. Ind with eating. Discharge recommendations of sit to dress/undress and bathe and have someone stand by when standing/ walking during ADLs were reviewed with pt and his son, with their verbal understanding. Recommend shower chair, which pt has. See tx plan for goals met. DC OT. PT Government Affairs Fellow Goals Group Home Goals PT Group Home Goals Time Frame: Jun 23, 2017 Transfers (B,C,W/C) (FIM): 6 Roll Left to Right (QC): 6 (met) Sit to Lying (QC): 6 (et) Lying-Sitting on Side/Bed(QC): 6 (et) Sit to Stand (QC): 6 (met) Car Transfer (QC): 4 Gait (FIM): 6 Distance: 300' Walk 10 feet (QC): 6 Walk 10ft-Uneven Surface(QC): 6 Walk 50ft with 2 Turns (QC): 6 Walk 150 ft (QC): 6 Gait Assistive Device: FWW Stairs (FIM): 4 (met) # of Steps: 12 (met) 1 Step (curb) (QC): 4 (et) 4 Steps (QC): 4 (met) 12 Steps (QC): 4 (met) Stairs Level Of Assist: 4 (met) OT Government Affairs Fellow Goals Group Home Goals Time Frame: Jun 23, 2017 Eating (FIM): 7 (met 06-03-17) Eating (QC): 6 (met 06-03-17) Oral Hygiene (QC): 6 (not met 06-03-17) Grooming(FIM): 6 (not met 06-03-17) Bathing(FIM): 6 (not met 06-03-17) Shower/Bathe Self (QC): 6 (not met 06-03-17) Upper Body Dressing(FIM): 6 (not met 06-03-17) Upper Body Dressing (QC): 6 (not met 06-03-17) Lower Body Dressing(FIM): 6 (not met 06-03-17) Lower Body Dressing (QC): 6 (not met 06-03-17) On/Off Footwear (QC): 6 (not met 06-03-17) Toileting(FIM): 6 (not met 06-03-17) Toileting Hygiene (QC): 6 (not met 06-03-17) Toilet/Commode Transfer(FIM): 6 (not met 06-03-17) Toilet/Commode Transfer (QC): 6 (not met 06-03-17) Shower Transfer(FIM): 6 (not met 06-03-17) Additional Goals: 2-Verbalize Understanding, 3-ImproveStrength/Tera 1=Demonstrate adherence to instructed precautions during ADL tasks. 2=Patient will verbalize/demonstrate understanding of assistive devices/ modifications for ADL. 3=Patient will improve strength/tolerance for activity to enable patient to perform ADL's. CASS CABRERA OT Jun 03, 2017 16:10
--- NOTE | 2017-06-07 11:22 | Individualized Plan of Care ---
Individualized Plan of Care Rehab Nursing IPOC Order Admission Date Jun 01, 2017 at 13:43 Current Orders Orders Physician Orders (06/06/17 17:31) Rehab Nursing Orders: Diseage Management, Edu in Press Rel Techn, Hydration Management, Nutrition Management, Pain Management Other Nursing Orders: Monitor for urinary retention and constipation PT IPOC Problem List: Activity Tolerance, Functional Strength, Safety, Balance, Gait, Transfer Treatment Plan: Continue Plan of Care Bed Mobility, Education, Functional Activity Tera, Functional Strength, Group Therapy, Gait, Safety, Therapeutic Exercise, Transfers Treatment Duration: Jun 23, 2017 Frequency: At least 5-7 days/Wk (IRF) Estimated Hrs Per Day: 1.5 hours per day OT IPOC Problems: Decreased Activ Tolerance, Decreased Safety Aware, Decreased UE Strength, Impaired Funct Balance, Impaired Self-Care Skills OT Problems pt would benefit from skilled OT to increase his independence in basic self care to allow him to safely return to his home to live with his . Plan of Care: ADL Retraining, Functional Mobility, Group Exercise/Act as Ind ( education, exercise, activity tolerance, education, socialization), UE Funct Exercise/Act, UE Neuromus Re-Ed/Coord Treatment Duration: Jun 23, 2017 Frequency: Twice Daily (5-6 times a week) Estimated Hrs Per Day: 1.[address] IPOC Speech Therapy Treatment Plan: Discontinue ST Frequency: Modified Program (IRF) Estimated Hrs Per Day: .25 hour per day (The patient will not receive skilled speech pathology services at this time.) Physician IPOC Medical Issues being managed closely and that require the 24 hour availability of a physician: Medical Issues: Bowel/Bladder Function, DVT Prophylaxis, Falls Precautions, Fluid/Electrolyte/Nutrition Balance, Infection Protection, Pain Management, Wound Care, Other (List) (as per above) Brief Synthesis of Preadmission Screen, Post-Admission Evaluation, and Therapy Evaluations: Medical Prognosis: good Anticipated Length of Stay: 7-10 days Rehab Goals Modified Independent to supervision for adls and mobility skills Anticipated discharge destinat: Home with spouse with OSKAR TORREZ MD Jun 07, 2017 11:22
== END 2017-06-03 15:00 | disposition home or self-care (01) | DRG 948 ==
PROVIDERS: ADMIT Internal Medicine; ATTEND Physical Medicine & Rehabilitation
DX: R53.1 Weakness (principal); R26.81 Unsteadiness on feet; R41.0 Disorientation, unspecified; K59.03 Drug induced constipation; R29.6 Repeated falls; Z98.890 Other specified postprocedural states; E86.0 Dehydration; E78.5 Hyperlipidemia, unspecified; F32.9 Major depressive disorder, single episode, unspecified; M47.9 Spondylosis, unspecified; E78.00 Pure hypercholesterolemia, unspecified; G47.00 Insomnia, unspecified; T48.1X5A Adverse effect of skeletal muscle relaxants [neuromuscular blocking agents], initial encounter; T40.2X5A Adverse effect of other opioids, initial encounter; T42.75XA Adverse effect of unspecified antiepileptic and sedative-hypnotic drugs, initial encounter

== ENCOUNTER → 2019-04-09 | Outpatient (CLI) | payer MEDICARE, OTHER ==
[~2019-04-09] MED LIST changes: +ALPR1TAB7 PO; +ATOR80TA76 PO; +CYCL10TA9 PO; +DIAZ5TAB3 PO; +DOCU100C37 PO; +ESCI20TA45 PO; +GABA-486 PO; +NYST1000 PO; +OXYC-471 PO; +RANI150T11 PO; +SENN8.6T62 PO; +TRAM50TA2 PO
--- NOTE | 2019-04-09 15:05 | Diagnostic Imaging Report ---
PROCEDURE: MRI lumbar spine. TECHNIQUE: Multiplanar, multisequence MRI of the lumbar spine was performed without contrast. INDICATION: Lower back pain. Left hip pain. Previous lumbar spine surgery. COMPARISON: 03/02/2017. FINDINGS: There is transitional lumbosacral anatomy. Sacralization of L5 is present and better appreciated on previous CT abdomen dated 08/04/2010. Last well formed, yet comparatively diminutive intervertebral disc space is denoted the L5-S1 level. Static alignment is maintained. There is no significant susan or retrolisthesis. There is no evidence of jumped facets. Vertebral body heights are preserved. There is no evidence of acute fracture. Evaluation of the marrow signal demonstrates minimal Modic type I change of the adjacent endplates at L1-L2. Otherwise, marrow signal is unremarkable. There is mild intervertebral disc height loss at L5-S1. Otherwise, intervertebral disc heights are fairly well maintained. Visualized portions of the distal cord are unremarkable. Conus terminates at approximately the L1 level. No abnormal intrathecal filling defects are seen. Pre and paravertebral soft tissue structures are unremarkable. Axial images demonstrate the following: L1-L2: There is mild broad-based posterior disc bulge and bilateral ligamentum flavum laxity and facet arthropathy. As a result, there is mild narrowing of the spinal canal and bilateral neuroforamen. L2-L3: There is mild broad-based posterior disc bulge with bilateral ligamentum flavum laxity and facet arthropathy. As a result, there is mild narrowing of the spinal canal and bilateral neuroforamen. L3-L4: There is mild broad-based posterior disc bulge with bilateral ligamentum flavum laxity and facet arthropathy. As a result, there is mild narrowing of the spinal canal and bilateral neuroforamen. L4-L5: There is broad-based posterior disc bulge as well as right-sided ligamentum flavum laxity and bilateral facet arthropathy. Patient appears to be status post previous left hemilaminectomy. As a result, there is mild spinal canal and bilateral neuroforaminal narrowing. L5-S1: There is no large disc bulge or focal protrusion. There is no significant spinal canal or neuroforaminal stenosis. IMPRESSION: 1. Multilevel degenerative changes of the lumbar spine as described above. 2. Transitional lumbosacral anatomy. 3. No acute fracture or dislocation. Dictated by: Dictated on workstation # [id number]
== END ==
LOC: RAD 12:43
PROVIDERS: ATTEND Physician Assistant
DX: M51.26 Other intervertebral disc displacement, lumbar region (principal); M51.36 Other intervertebral disc degeneration, lumbar region; M46.86 Other specified inflammatory spondylopathies, lumbar region; M48.061 Spinal stenosis, lumbar region without neurogenic claudication; Q76.49 Other congenital malformations of spine, not associated with scoliosis; Z98.890 Other specified postprocedural states
CPT/HCPCS: 72148

== ENCOUNTER 2019-12-07 09:48 | Outpatient (RCR) | payer MEDICARE, OTHER ==
[~2019-12-07 09:48] MED LIST changes: -DIAZ5TAB3 PO; +DIAZ5TAB49 PO; -TRAM50TA2 PO; +TRM50T PO
== END 2020-03-06 | disposition home or self-care (01) ==
LOC: LAB 09:48
PROVIDERS: ATTEND Internal Medicine
DX: R19.7 Diarrhea, unspecified (principal)
CPT/HCPCS: 87015; 87045; 87046; 87328; 87329; 87899

== ENCOUNTER → 2021-04-27 | Outpatient (CLI) | payer MEDICARE, OTHER ==
[~2021-04-27] MED LIST changes: +CATHETER FLUSH 10 ML SYR IV PRN; +ESCI20TA39 PO; -ESCI20TA45 PO; -OXYC-471 PO; +OXYC1TAB11 PO
[2021-04-27 08:00] VITALS: BP 107/74
--- NOTE | 2021-04-27 08:25 | Diagnostic Imaging Report ---
Indication: Chest pain. Time of exam: 7:41 AM Correlation is made with prior chest 06/01/2017. Heart size normal. There is some ectasia and tortuosity of the descending thoracic aorta. There is some questionable minimal patchy infiltrate in the left upper lobe. Otherwise lungs are clear. There is no effusion or pneumothorax. Impression: Minimal patchy left upper lobe infiltrate. The study is otherwise unremarkable. Dictated by: Dictated on workstation # [id number]
--- NOTE | 2021-04-27 10:30 | Cardiology Stress Test Report ---
Stress Test Report Date of Procedure/Referring: Date of Procedure: Apr 27, 2021 PCP Mary Cornell DO Admitting Physician Mary Cornell DO Indications: CP Baseline Vital Signs Vital Signs Date Time Temp Pulse Resp B/P (MAP) Pulse Ox O2 Delivery O2 Flow Rate FiO2 04/27/21 08:00 70 107/74 (85) 97 Summary: Patient receive a resting and stress dose of Myoview, images were acquired and reviewed in the short axis view, horizontal long axis view and vertical long axis view. TID: 1.05 SSS: 1 SDS: 1 EF: 67 1. No significant ischemia or infarction on SPECT images 2. Normal left ventricular size, EF 67% Copy Copies To 1: MARY CORNELL BASHAR J MD Apr 27, 2021 10:30
== END ==
LOC: CARD 06:55
PROVIDERS: ATTEND Internal Medicine
DX: R91.8 Other nonspecific abnormal finding of lung field (principal)
CPT/HCPCS: 71046; 78452; 93017; A9502

== ENCOUNTER 2021-11-05 17:10 | Emergency (ER) | payer MEDICARE, OTHER ==
[~2021-11-05] VITALS: Ht 187 cm; Wt 86.0 kg
[~2021-11-05 17:10] MED LIST changes: -CATHETER FLUSH 10 ML SYR IV PRN; +CYCL10TA25 PO; -CYCL10TA9 PO; -LEVO500T80 PO; +LEVO500T81 PO
[2021-11-05 17:24] LABS: BILIRUBIN,URINE NEGATIVE (NEGATIVE); CLARITY,URINE CLOUDY; COLOR,URINE YELLOW; GLUCOSE, URINE (UA) NEGATIVE (NEGATIVE); KETONES,URINE NEGATIVE (NEGATIVE); LEUKOCYTE ESTERASE ,URINE NEGATIVE (NEGATIVE); NITRITE,URINE NEGATIVE (NEGATIVE); PH,URINE 5.5 (5-9); PROTEIN,URINE 1+ (NEGATIVE)
[2021-11-05 17:33] LABS: BACTERIA,URINE TRACE /HPF; RBC,URINE 50-100 /HPF; WBC,URINE 0-2 /HPF
[2021-11-05 17:33] LABS: LYMPHOCYTES % (AUTO) 27 % (12-44); MEAN CORPUSCULAR VOLUME 93 fL (80-99)
[2021-11-05 17:34] LABS: AMORPHOUS SEDIMENT,UR FEW AMOR URATES /LPF
[2021-11-05 17:35] LABS: BASOPHILS # (AUTO) 0.1 10^3/uL (0.0-0.1); BASOPHILS % (AUTO) 1 % (0-10); EOSINOPHILS # (AUTO) 0.2 10^3/uL (0.0-0.3); EOSINOPHILS % (AUTO) 2 % (0-10); HEMATOCRIT 51 % (40-54); HEMOGLOBIN 16.6 g/dL (13.3-17.7); LYMPHOCYTES # (AUTO) 2.5 10^3/uL (1.0-4.0); MEAN CORPUSCULAR HEMOGLOBIN 31 pg (25-34); MEAN CORPUSCULAR HGB CONC 33 g/dL (32-36); MEAN PLATELET VOLUME 10.6 fL (9.0-12.2); MONOCYTES # (AUTO) 0.7 10^3/uL (0.0-1.0); MONOCYTES % (AUTO) 7 % (0-12); NEUTROPHILS # (AUTO) 5.9 10^3/uL (1.8-7.8); NEUTROPHILS % (AUTO) 63 % (42-75); PLATELET COUNT 175 10^3/uL (130-400); WHITE BLOOD COUNT 9.4 10^3/uL (4.3-11.0)
[2021-11-05 17:43] LABS: ALBUMIN 4.3 GM/DL (3.2-4.5); POTASSIUM 3.7 MMOL/L (3.6-5.0)
[2021-11-05 17:45] LABS: CALCIUM 9.6 MG/DL (8.5-10.1)
[2021-11-05] MEDS ORDERED: morphine INJ 10 MG/ML 1ML (SYR OR VIAL) IVP ONE (17:45)
[2021-11-05] MEDS ORDERED: NS IV 1000 ML 1,000 ML IV SCH (17:45)
[2021-11-05] MEDS ORDERED: ONDANSETRON 4 MG/2 ML (SDV) Z0FRAN IVP ONE (17:45)
[2021-11-05 17:46] LABS: TOTAL PROTEIN 7.5 GM/DL (6.4-8.2)
[2021-11-05 17:47] LABS: BILIRUBIN,TOTAL 0.5 MG/DL (0.1-1.0)
[2021-11-05 17:49] LABS: CREATININE SERUM 0.98 MG/DL (0.60-1.30)
--- NOTE | 2021-11-05 17:49 | ED GI ---
General Chief Complaint: Abdominal/GI Problems Stated Complaint: POSSIBLE KIDNEY STONE Nursing Triage Note: PT AMB TO ER WITH C/O POSS KIDNEY STONE. PT HAS PAIN ON L FLANK 5/10 PAIN LEVEL SINCE GETTING TO THE ER BT 08/16 AT HOME. PT HAS HX OF KIDNEY STONES Source of Information: Patient Exam Limitations: No Limitations (RUBIN DELACRUZ) History of Present Illness Date Seen by Provider: Nov 05, 2021 Time Seen by Provider: 17:47 Initial Comments Patient is a 80-year-old male who presents ED with left flank pain. Acute onset around 3:00 this afternoon. No radiating pain. Described as sharp without radiation. Reports nausea without vomiting or diarrhea. No previous abdominal surgery. History of kidney stone 2 to 3 years ago. Difficulty urinating. Noted dark urine. Denies taking thing for pain. Rates pain 5 out of 10. Denies chest pain, shortness of breath, cough, headache, dizziness. (RUBIN DELACRUZ) Allergies and Home Medications Allergies Coded Allergies: No Known Drug Allergies (Unverified , 10/04/15) Patient Home Medication List Home Medication List Reviewed: Yes (RUBIN DELACRUZ) Alprazolam (Alprazolam) 1 Mg Tablet, 1 MG PO TID PRN for ANXIETY, (Reported) Entered as Reported by: BRODERICK LEES on 06/01/17 1628 Atorvastatin Calcium (Atorvastatin Calcium) 80 Mg Tablet, 80 MG PO HS, (Reported) Entered as Reported by: BRODERICK LEES on 06/01/17 1628 Cephalexin (Cephalexin) 500 Mg Capsule, 500 MG PO BID Prescribed by: ROHINI RUIZ on 11/07/21 0604 Docusate Sodium (Docusate Sodium) 100 Mg Capsule, 100 MG PO DAILY PRN for CONSTIPATION-1ST LINE, (Reported) Entered as Reported by: BRODERICK LEES on 06/01/17 1655 Escitalopram Oxalate (Escitalopram Oxalate) 20 Mg Tablet, 20 MG PO DAILY, (Reported) Entered as Reported by: BRODERICK LEES on 06/01/17 1628 Hydrocodone/Acetaminophen (Hydrocodone-Acetamin 5-325 mg) 1 Each Tablet, 1 TAB PO Q4H PRN for PAIN-MODERATE (5-7) Prescribed by: VINOD JESUS on 11/05/21 1859 Hydrocodone/Acetaminophen (Hydrocodone-Acetamin 7.5-325) 1 Each Tablet, 1 EACH PO Q4H PRN for PAIN-MODERATE (5-7) Prescribed by: ROHINI RUIZ on 11/07/21 0605 Nystatin (Nystatin) 100,000 Unit/1 Ml Oral.susp, 5 ML PO QID Prescribed by: HORTENSIA AMRI on 06/03/17 1130 Ondansetron (Ondansetron Odt) 4 Mg Tab.rapdis, 4 MG PO Q6H PRN for NAUSEA/VOMITING-1ST LINE Prescribed by: VINOD JESUS on 11/05/21 1858 Ranitidine HCl (Ranitidine HCl) 150 Mg Tablet, 150 MG PO BID, (Reported) Entered as Reported by: BRODERICK LEES on 06/01/17 1655 Sennosides (Vegetable Laxative) 8.6 Mg Tablet, 8.6 MG PO HS PRN for CONSTIPATION, (Reported) Entered as Reported by: BRODERICK LEES on 06/01/17 165 Tamsulosin HCl (Flomax) 0.4 Mg Cap, 0.4 MG PO DAILY Prescribed by: VINOD JESUS on 11/05/21 185 Tramadol HCl (Tramadol HCl) 50 Mg Tablet, 50 MG PO Q6H PRN for PAIN-MODERATE, (Reported) Entered as Reported by: BRODERICK LEES on 06/01/17 1628 Review of Systems Review of Systems Constitutional: No see HPI, No chills, No diaphoresis, No dizziness, No fever, No malaise EENTM: No Double Vision, No Ear Pain, No Mouth Pain Respiratory: Denies Cough, Denies Orthopnea, Denies Shortness of Air, Denies SOA With Exertion Cardiovascular: Denies Edema Gastrointestinal: Abdominal Pain; Denies Constipated, Denies Diarrhea, Denies Vomiting Genitourinary: Denies Burning, Denies Drainage, Denies Frequency, Denies Flank Pain Musculoskeletal: No back pain, No joint pain Skin: No change in color, No change in hair/nails (RUBIN DELACRUZ) All Other Systems Reviewed Negative Unless Noted: Yes (RUBIN DELACRUZ) Past Zogzhxq-Ysxgvq-Inhpws Hx Patient Social History Tobacco Use?: No Substance use?: No Alcohol Use?: Yes Alcohol Frequency: Rarely Pt feels they are or have been: No (RUBIN DELACRUZ) Immunizations Up To Date Influenza Vaccine Up-to-Date: No; Not Current First/Initial COVID19 Vaccinat: NOV 2020 Second COVID19 Vaccination Caleb: NOV 2020 COVID19 Vaccine 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 (RUBIN DELACRUZ) Seasonal Allergies Seasonal Allergies: No (RUBIN DELACRUZ) Past Medical History Surgeries: Yes Orthopedic Respiratory: No Cardiac: Yes High Cholesterol Neurological: No Sexually Transmitted Disease: No HIV/AIDS: No Genitourinary: No Gastrointestinal: No Gastroesophageal Reflux Musculoskeletal: Yes (DDD) Degenerate Disk Disease, Chronic Back Pain Endocrine: No HEENT: No (reading glasses) Loss of Vision: Denies Hearing Impairment: Denies Cancer: No Psychosocial: No Integumentary: No Blood Disorders: No Adverse Reaction/Blood Tranf: No (never had a transfusion) (RUBIN DELACRUZ) Family Medical History Respiratory disorder 19 FATHER No Pertinent Family Hx (RUBIN DELACRUZ) Physical Exam Vital Signs Vital Signs - First Documented 11/05/21 17:15 Temp 35.2 Pulse 68 Resp 18 B/P (MAP) 136/74 (94) Pulse Ox 97 O2 Delivery Room Air (ISAI SANDERSON MD) Vital Signs Capillary Refill : (RUBIN DELACRUZ) Height/Weight/BMI Height: 6'2.00" Weight: 213lbs. 6.4oz. 96.419935mf; 24.00 BMI Method:Stated General Appearance: WD/WN, no apparent distress HEENT: PERRL/EOMI, normal ENT inspection, TMs normal, pharynx normal Neck: non-tender, full range of motion, supple, normal inspection Respiratory: chest non-tender, lungs clear, normal breath sounds, no respiratory distress, no accessory muscle use Cardiovascular: regular rate, rhythm, no edema, no gallop, no JVD Gastrointestinal: normal bowel sounds, non tender, soft, no organomegaly, no pulsatile mass, other (Left flank tenderness) Extremities: normal range of motion, non-tender, normal inspection, no pedal edema Back: normal inspection, no CVA tenderness, no vertebral tenderness (RUBIN DELACRUZ) Progress/Results/Core Measures Results/Orders Lab Results Laboratory Tests Test 11/05/21 17:15 11/05/21 17:20 Range/Units Urine Color YELLOW Urine Clarity CLOUDY Urine pH 5.5 5-9 Urine Specific Etlan >=1.030 1.016-1.022 Urine Protein 1+ H NEGATIVE Urine Glucose (UA) NEGATIVE NEGATIVE Urine Ketones NEGATIVE NEGATIVE Urine Nitrite NEGATIVE NEGATIVE Urine Bilirubin NEGATIVE NEGATIVE Urine Urobilinogen 0.2 < = 1.0 MG/DL Urine Leukocyte Esterase NEGATIVE NEGATIVE Urine RBC (Auto) 3+ H NEGATIVE Urine RBC 50-100 H /HPF Urine WBC 0-2 /HPF Urine Crystals PRESENT H /LPF Urine Amorphous Sediment FEW ALEXIA URATES H /LPF Urine Bacteria TRACE /HPF Urine Casts NONE /LPF Urine Mucus NEGATIVE /LPF Urine Culture Indicated NO White Blood Count 9.4 4.3-11.0 10^3/uL Red Blood Count 5.44 4.30-5.52 10^6/uL Hemoglobin 16.6 13.3-17.7 g/dL Hematocrit 51 40-54 % Mean Corpuscular Volume 93 80-99 fL Mean Corpuscular Hemoglobin 31 25-34 pg Mean Corpuscular Hemoglobin Concent 33 32-36 g/dL Red Cell Distribution Width 13.2 10.0-14.5 % Platelet Count 175 130-400 10^3/uL Mean Platelet Volume 10.6 9.0-12.2 fL Immature Granulocyte % (Auto) 0 % Neutrophils (%) (Auto) 63 42-75 % Lymphocytes (%) (Auto) 27 12-44 % Monocytes (%) (Auto) 7 0-12 % Eosinophils (%) (Auto) 2 0-10 % Basophils (%) (Auto) 1 0-10 % Neutrophils # (Auto) 5.9 1.8-7.8 10^3/uL Lymphocytes # (Auto) 2.5 1.0-4.0 10^3/uL Monocytes # (Auto) 0.7 0.0-1.0 10^3/uL Eosinophils # (Auto) 0.2 0.0-0.3 10^3/uL Basophils # (Auto) 0.1 0.0-0.1 10^3/uL Immature Granulocyte # (Auto) 0.0 0.0-0.1 10^3/uL Percent Immature Platelet Fraction 6.9 0.0-7.6 % Sodium Level 139 135-145 MMOL/L Potassium Level 3.7 3.6-5.0 MMOL/L Chloride Level 103 98-107 MMOL/L Carbon Dioxide Level 22 21-32 MMOL/L Anion Gap 14 5-14 MMOL/L Blood Urea Nitrogen 14 7-18 MG/DL Creatinine 0.98 0.60-1.30 MG/DL Estimat Glomerular Filtration Rate 74 BUN/Creatinine Ratio 14 Glucose Level 121 H 70-105 MG/DL Calcium Level 9.6 8.5-10.1 MG/DL Corrected Calcium 9.4 8.5-10.1 MG/DL Total Bilirubin 0.5 0.1-1.0 MG/DL Aspartate Amino Transf (AST/SGOT) 21 5-34 U/L Alanine Aminotransferase (ALT/SGPT) 23 0-55 U/L Alkaline Phosphatase 77 40-136 U/L Total Protein 7.5 6.4-8.2 GM/DL Albumin 4.3 3.2-4.5 GM/DL (ISAI SANDERSON MD) My Orders Orders - ISAI SANDERSON MD Cbc With Automated Diff (11/05/21 17:14) Comprehensive Metabolic Panel (11/05/21 17:14) Ua Culture If Indicated (11/05/21 17:14) Ed Iv/Invasive Line Start (11/05/21 17:14) (ISAI SANDERSON MD) Vital Signs/I&O 11/05/21 11/05/21 17:15 19:12 Temp 35.2 35.2 Pulse 68 67 Resp 18 18 B/P (MAP) 136/74 (94) 114/97 Pulse Ox 97 97 O2 Delivery Room Air Room Air (ISAI SANEDRSON MD) Blood Pressure Mean: 94 Departure Communication (Admissions) Patient urinalysis positive for hematuria without evidence of infection. Normal white blood count, kidney function. Patient with left flank pain. No left abdominal tenderness or pain. Patient was given a liter fluid, Zofran, Toradol and morphine with improvement of pain. CT abdomen pelvis shows a left mid ureter 2 mm stone with mild hydronephrosis and obstruction. Left inguinal hernia without evidence of incarceration. No palpable mass noted on exam. Denies any groin pain. Patient was able to urinate here without difficulties. Pain control. Will discharge with pain medication, nausea medication, Flomax. Urology op outpatient follow-up. Discussed hydration. Return precaution were discussed with patient. (RUBIN DELACRUZ) Impression Primary Impression: Ureterolithiasis Additional Impression: Inguinal hernia Disposition: HOME, SELF-CARE Condition: Stable Departure-Patient Inst. Decision time for Depature: 18:57 (RUBIN DELACRUZ) Referrals: MARY RUEDA DO (PCP/Family) Primary Care Physician MOISE AMARAL MD Patient Instructions: Kidney Stones (DC) Scripts Hydrocodone/Acetaminophen (Hydrocodone-Acetamin 5-325 mg) 1 Each Tablet 1 TAB PO Q4H PRN for PAIN-MODERATE (5-7), #10 TAB Prov: RUBIN DELACRUZ 11/05/21 Ondansetron (Ondansetron Odt) 4 Mg Tab.rapdis 4 MG PO Q6H PRN for NAUSEA/VOMITING-1ST LINE for 7 Days, #10 TAB Prov: RUBIN DELACRUZ 11/05/21 Tamsulosin HCl (Flomax) 0.4 Mg Cap 0.4 MG PO DAILY for 20 Days, #20 CAP Prov: RUBIN DELACRUZ 11/05/21 Attending Physician Note: I was physically present as attending physician on duty in the ER during the evaluation and treatment of this patient. I placed initial set of orders based on CC and nursing triage report, but I was not otherwise directly involved with the decision making process or the care delivered to this patient. VINOD Murphy assumed care of this patient after my initial orders. (ISAI SANDERSON MD) RUBIN DELACRUZ Nov 05, 2021 17:49 ISAI SANDERSON MD Nov 08, 2021 23:51
[2021-11-05] MEDS ORDERED: KETOROLAC 30 MG/ML VIAL ONE (18:21)
--- NOTE | 2021-11-05 18:29 | Diagnostic Imaging Report ---
INDICATION: Left flank pain and hematuria. EXAMINATION: CT abdomen and pelvis without contrast, 11/05/2021. All CT scans use one or more of the following dose optimizing techniques: automated exposure control, MA and/or KvP adjustment based on patient size and exam type or iterative reconstruction. COMPARISON: 08/04/2010. FINDINGS: There is bibasilar atelectasis within the visualized lung bases. There are multiple bilateral parapelvic cysts, left worse than right. There are large cystic lesions emanating off of both kidneys simple in appearance. There is mild left hydronephrosis. There is a small approximately 2 mm stone in the mid left ureter. There are no ureteral stones on the right. There is diffuse atherosclerotic disease along the course of the aorta. 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 More distally a 2nd focal area of aneurysmal dilatation proximal to the bifurcation measures 2.7 cm. There is prominence of bilateral common iliac arteries. The nonopacified liver is poorly characterized without contrast. It contains multiple cystic lesions, the largest of which are simple in appearance. The smaller lesions are poorly characterized. The spleen appears unremarkable. The pancreas and adrenal glands are unremarkable. There is a left inguinal hernia which contains a loop of sigmoid colon. No incarceration or strangulation is appreciated with no obstructive process however clinical correlation with symptoms recommended. There is no ascites or free air. There is no acute osseous abnormality. IMPRESSION: 1. 2 mm stone in the mid left ureter with secondary mild left hydroureteronephrosis. Multiple bilateral parapelvic cysts noted with simple appearing cyst otherwise present in both kidneys. 2. Multiple cystic lesions in the liver, some which appears simple others are indeterminate. Nonemergent dedicated CT imaging of the liver with contrast using liver protocol could better characterize. 3. Left inguinal hernia which contains a loop of colon without evidence for obstruction or obvious incarceration but clinical correlation with patient's symptoms recommended. Other incidental findings as discussed above. Dictated by: Dictated on workstation # [id number]
[2021-11-05] MEDS ORDERED: KETOROLAC 15 MG/ML VIAL IVP ONE (18:30)
[2021-11-05] MEDS ORDERED: KETOROLAC 30 MG/ML VIAL IVP ONE (18:30)
[2021-11-05] MEDS ORDERED: TMSL.4C PO (18:58)
[2021-11-05] MEDS ORDERED: ACHD5005 PO (18:58)
[2021-11-05] MEDS ORDERED: ONDA4TAB11 PO (18:58)
[2021-11-05 19:12] VITALS: BP 114/97
== END 2021-11-05 19:17 | disposition home or self-care (01) ==
LOC: EDUNIT# 17:10 → ER 17:11
DX: N13.2 Hydronephrosis with renal and ureteral calculous obstruction (principal); K40.90 Unilateral inguinal hernia, without obstruction or gangrene, not specified as recurrent; K21.9 Gastro-esophageal reflux disease without esophagitis; E78.00 Pure hypercholesterolemia, unspecified; G89.29 Other chronic pain; M54.9 Dorsalgia, unspecified; Z79.899 Other long term (current) drug therapy; Z79.891 Long term (current) use of opiate analgesic
CPT/HCPCS: 36415; 74176; 80053; 81000; 85025

== ENCOUNTER 2021-11-07 04:39 | Emergency (ER) | payer MEDICARE, OTHER ==
[~2021-11-07] VITALS: Ht 188 cm; Wt 86.0 kg
[~2021-11-07 04:39] MED LIST changes: +ACHD5005 PO; +TMSL.4C PO
[2021-11-07] MEDS ORDERED: KETOROLAC 30 MG/ML VIAL IVP STA (04:56)
[2021-11-07] MEDS ORDERED: fentaNYL INJ 100 MCG/2 ML AMP IVP STA (04:56)
[2021-11-07] MEDS ORDERED: NS IV 1000 ML 1,000 ML IV ONE (05:00)
[2021-11-07 05:14] LABS: BASOPHILS % (AUTO) 0 % (0-10); EOSINOPHILS % (AUTO) 0 % (0-10); HEMATOCRIT 50 % (40-54); HEMOGLOBIN 16.2 g/dL (13.3-17.7); LYMPHOCYTES # (AUTO) 0.6 10^3/uL (1.0-4.0); LYMPHOCYTES % (AUTO) 4 % (12-44); MEAN CORPUSCULAR HEMOGLOBIN 30 pg (25-34); MEAN CORPUSCULAR HGB CONC 32 g/dL (32-36); MEAN CORPUSCULAR VOLUME 94 fL (80-99); MEAN PLATELET VOLUME 10.5 fL (9.0-12.2); MONOCYTES # (AUTO) 0.5 10^3/uL (0.0-1.0); MONOCYTES % (AUTO) 4 % (0-12); NEUTROPHILS # (AUTO) 12.6 10^3/uL (1.8-7.8); NEUTROPHILS % (AUTO) 91 % (42-75); PLATELET COUNT 163 10^3/uL (130-400); WHITE BLOOD COUNT 13.7 10^3/uL (4.3-11.0)
[2021-11-07 05:16] LABS: POTASSIUM 4.8 MMOL/L (3.6-5.0)
[2021-11-07 05:17] LABS: CALCIUM 9.7 MG/DL (8.5-10.1)
[2021-11-07 05:22] LABS: CREATININE SERUM 1.28 MG/DL (0.60-1.30)
--- NOTE | 2021-11-07 05:35 | Diagnostic Imaging Report ---
HISTORY: Abdominal pain, left flank pain COMPARISON: 06/01/2017. CT from 11/05/2021 TECHNIQUE: Frontal view of the abdomen FINDINGS: The previously seen 2 mm ureter in the left ureter is not well seen radiographically, but this may be secondary to the modality. There are phleboliths in the pelvis. There is moderate stool in the right colon. There are prominent loops of small bowel in the right abdomen. No large collection of free air is seen. IMPRESSION: 1. The previously described 2 mm calculus along the left mid ureter is not seen radiographically. There are phleboliths in the pelvis. 2. Moderate stool in the colon. Mildly prominent loops of small bowel in the right abdomen may be due to ileus. Dictated by: Dictated on workstation # [id number]
--- NOTE | 2021-11-07 05:46 | ED GU-Male ---
General Chief Complaint: Abdominal/GI Problems Stated Complaint: KIDNEY STONES Nursing Triage Note: PT AMB TO ED BY POV WITH C/O KIDNEY STONES. PT WAS SEEN AND TREATED HERE ON 11/05 FOR KIDNEY STONE, BUT REPORTS HE HAS NOT HAD RELIEF OF PAIN AND CONTINUES TO BE NAUSEOUS WHILE TAKING PRESCRIBED HYDROCODONE AND ZOFRAN. PT RATES L SIDED ABD/FLANK PAIN 06/16. Source: patient Exam Limitations: no limitations (ROHINI RUIZ MD) History of Present Illness Date Seen by Provider: Nov 07, 2021 Time Seen by Provider: 04:52 Initial Comments Here with report of left flank pain that has persisted since he was seen on 11/05/2021 and found to have 2 mm mid ureteral stone. Does have history of kidney stones. Denies fever or chills. Has had nausea and some vomiting since last visit. States the pain medicine that he was prescribed is not working. He was prescribed hydrocodone 5/325 as well as tamsulosin and ondansetron. He reports taking those as directed. Previous kidney stone took a few weeks to pass. He has not taken anything else for pain. Drove himself to the emergency department today. Timing/Duration: getting worse, other (2 to 3 days) Severity/Quality: aching Location: left flank Radiation: none Activities at Onset: none Prior Genitourinary Problems: similar symptoms Modifying Factors: Improves With Analgesics Associated Symptoms: No abdominal pain, No dysuria, No fever/chills; lower back pain, nausea/vomiting; No urinary frequency (ROHINI RUIZ MD) Allergies and Home Medications Allergies Coded Allergies: No Known Drug Allergies (Unverified , 10/04/15) Patient Home Medication List Home Medication List Reviewed: Yes (ROHINI RUIZ MD) Alprazolam (Alprazolam) 1 Mg Tablet, 1 MG PO TID PRN for ANXIETY, (Reported) Entered as Reported by: BRODERICK LEES on 06/01/171627 Atorvastatin Calcium (Atorvastatin Calcium) 80 Mg Tablet, 80 MG PO HS, (Reported) Entered as Reported by: BRODERICK LEES on 06/01/171627 Cephalexin (Cephalexin) 500 Mg Capsule, 500 MG PO BID Prescribed by: ROHINI RUIZ on 11/07/21 0604 Docusate Sodium (Docusate Sodium) 100 Mg Capsule, 100 MG PO DAILY PRN for CONSTIPATION-1ST LINE, (Reported) Entered as Reported by: BRODERICK LEES on 06/01/171654 Escitalopram Oxalate (Escitalopram Oxalate) 20 Mg Tablet, 20 MG PO DAILY, (Reported) Entered as Reported by: BRODERICK LEES on 06/01/171627 Hydrocodone/Acetaminophen (Hydrocodone-Acetamin 5-325 mg) 1 Each Tablet, 1 TAB PO Q4H PRN for PAIN-MODERATE (5-7) Prescribed by: VINOD JESUS on 11/05/21 185 Hydrocodone/Acetaminophen (Hydrocodone-Acetamin 7.5-325) 1 Each Tablet, 1 EACH PO Q4H PRN for PAIN-MODERATE (5-7) Prescribed by: ROHINI RUIZ on 11/07/21 0605 Nystatin (Nystatin) 100,000 Unit/1 Ml Oral.susp, 5 ML PO QID Prescribed by: HORTENSIA MARI on 06/03/17 1130 Ondansetron (Ondansetron Odt) 4 Mg Tab.rapdis, 4 MG PO Q6H PRN for NAUSEA/VOMITING-1ST LINE Prescribed by: VINOD JESUS on 11/05/211857 Ranitidine HCl (Ranitidine HCl) 150 Mg Tablet, 150 MG PO BID, (Reported) Entered as Reported by: BRODERICK LEES on 06/01/171654 Sennosides (Vegetable Laxative) 8.6 Mg Tablet, 8.6 MG PO HS PRN for CONSTIPATION, (Reported) Entered as Reported by: BRODERICK LEES on 06/01/171654 Tamsulosin HCl (Flomax) 0.4 Mg Cap, 0.4 MG PO DAILY Prescribed by: VINOD JESUS on 11/05/211857 Tramadol HCl (Tramadol HCl) 50 Mg Tablet, 50 MG PO Q6H PRN for PAIN-MODERATE, (Reported) Entered as Reported by: BRODERICK LEES on 06/01/171627 Review of Systems Review of Systems Constitutional: see HPI; No chills, No fever EENTM: no symptoms reported Respiratory: No cough, No short of breath Cardiovascular: No chest pain, No edema Gastrointestinal: No abdominal pain; nausea, vomiting Genitourinary: flank pain, pain Musculoskeletal: see HPI Skin: no symptoms reported (ROHINI RUIZ MD) All Other Systemes Reviewed Negative Unless Noted: Yes (ROHINI RUIZ MD) Past Bzunkit-Hlazsj-Psmzkn Hx Patient Social History Tobacco Use?: No Use of E-Cig and/or Vaping dev: No Substance use?: No Alcohol Use?: No Pt feels they are or have been: No (ROHINI RUIZ MD) Immunizations Up To Date Influenza Vaccine Up-to-Date: No; Not Current First/Initial COVID19 Vaccinat: NOV 2020 Second COVID19 Vaccination Caleb: NOV 2020 Third COVID19 Vaccination Date: SEP 2021 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 (ROHINI RUIZ MD) Seasonal Allergies Seasonal Allergies: No (ROHINI RUIZ MD) Past Medical History Surgeries: Yes Orthopedic Respiratory: No Cardiac: Yes High Cholesterol Neurological: No Sexually Transmitted Disease: No HIV/AIDS: No Genitourinary: No Gastrointestinal: No Gastroesophageal Reflux Musculoskeletal: Yes (DDD) Degenerate Disk Disease, Chronic Back Pain Endocrine: No HEENT: No (reading glasses) Loss of Vision: Denies Hearing Impairment: Denies Cancer: No Psychosocial: No Integumentary: No Blood Disorders: No Adverse Reaction/Blood Tranf: No (never had a transfusion) (ROHINI RUIZ MD) Family Medical History Reviewed Nursing Family Hx (ROHINI RUIZ MD) Respiratory disorder 19 FATHER No Pertinent Family Hx (ROHINI RUIZ MD) Physical Exam Vital Signs Vital Signs - First Documented 11/07/21 04:50 Temp 36.8 Pulse 87 Resp 14 B/P (MAP) 144/78 (100) Pulse Ox 98 O2 Delivery Room Air (WENDY SUAREZ MD) Vital Signs Capillary Refill : Less Than 3 Seconds (ROHINI RUIZ MD) Height, Weight, BMI Height: 6'2.00" Weight: 213lbs. 6.4oz. 96.102989pc; 24.00 BMI Method:Stated General Appearance: WD/WN, mild distress HEENT: PERRL/EOMI, pharynx normal Neck: full range of motion, supple Cardiovascular: regular rate, rhythm, no murmur Respiratory: lungs clear, normal breath sounds Gastrointestinal: non tender, soft Back: normal inspection, no CVA tenderness, no vertebral tenderness Extremities: non-tender, normal inspection Neurologic/Psychiatric: alert, oriented x 3 Skin: normal color, warm/dry (ROHINI RUIZ MD) Progress/Results/Core Measures Suspected Sepsis SIRS Temperature: Pulse: 87 Respiratory Rate: 14 Laboratory Tests 11/07/21 05:00: White Blood Count 13.7H Blood Pressure 144 /78 Mean: 100 Laboratory Tests 11/07/21 05:00: Creatinine 1.28, Platelet Count 163 (ROHINI RUIZ MD) Results/Orders Lab Results Laboratory Tests Test 11/07/21 05:00 Range/Units White Blood Count 13.7 H 4.3-11.0 10^3/uL Red Blood Count 5.33 4.30-5.52 10^6/uL Hemoglobin 16.2 13.3-17.7 g/dL Hematocrit 50 40-54 % Mean Corpuscular Volume 94 80-99 fL Mean Corpuscular Hemoglobin 30 25-34 pg Mean Corpuscular Hemoglobin Concent 32 32-36 g/dL Red Cell Distribution Width 13.2 10.0-14.5 % Platelet Count 163 130-400 10^3/uL Mean Platelet Volume 10.5 9.0-12.2 fL Immature Granulocyte % (Auto) 0 % Neutrophils (%) (Auto) 91 H 42-75 % Lymphocytes (%) (Auto) 4 L 12-44 % Monocytes (%) (Auto) 4 0-12 % Eosinophils (%) (Auto) 0 0-10 % Basophils (%) (Auto) 0 0-10 % Neutrophils # (Auto) 12.6 H 1.8-7.8 10^3/uL Lymphocytes # (Auto) 0.6 L 1.0-4.0 10^3/uL Monocytes # (Auto) 0.5 0.0-1.0 10^3/uL Eosinophils # (Auto) 0.0 0.0-0.3 10^3/uL Basophils # (Auto) 0.0 0.0-0.1 10^3/uL Immature Granulocyte # (Auto) 0.1 0.0-0.1 10^3/uL Neutrophils % (Manual) 93 % Lymphocytes % (Manual) 2 % Monocytes % (Manual) 4 % Band Neutrophils 1 % Sodium Level 138 135-145 MMOL/L Potassium Level 4.8 3.6-5.0 MMOL/L Chloride Level 103 98-107 MMOL/L Carbon Dioxide Level 24 21-32 MMOL/L Anion Gap 11 5-14 MMOL/L Blood Urea Nitrogen 19 H 7-18 MG/DL Creatinine 1.28 0.60-1.30 MG/DL Estimat Glomerular Filtration Rate 54 BUN/Creatinine Ratio 15 Glucose Level 142 H 70-105 MG/DL Calcium Level 9.7 8.5-10.1 MG/DL (WENDY SUAREZ MD) Medications Given in ED (WENDY SUAREZ MD) Vital Signs/I&O 11/07/21 11/07/21 04:50 07:07 Temp 36.8 Pulse 87 79 Resp 14 14 B/P (MAP) 144/78 (100) 120/69 Pulse Ox 98 98 O2 Delivery Room Air Room Air (WENDY SUAREZ MD) Vital Signs/I&O Capillary Refill : Less Than 3 Seconds (ROHINI RUIZ MD) Blood Pressure Mean: 100 Progress Note : Progress Note Seen and evaluated. IV, labs and UA ordered. KUB ordered. Monitor patient. 0556: Overall doing much better and pain is much more tolerable and nearly gone. I did ask him about bowel movements. He does complain of constipation at times and takes MiraLAX for that. He is still passing gas and I do not believe he has obstructive concerns currently. Belly is soft and nontender. We will increase his prescription for pain medicine and add cephalexin as well. He will also supplement pain control with ibuprofen during the day and increase fluid intake. As long as he remains improved, anticipate discharge home when fluids are complete. (ROHINI RUIZ MD) Progress Note : Time: 07:01 Progress Note Patient reassessed at this time, pain is controlled. Vital signs are stable. He is completed a liter of fluids. He is comfortable with the plan of care. He is given referral information for Dr. Amaral. Encourage fluids. Pain medications as recommended per Dr. Ruiz. All questions are sought and answered (WENDY SUAREZ MD) Diagnostic Imaging Diagonstic Imaging: Xray Plain Films/CT/US/NM/MRI: abdomen Comments [facility]. [place], [place] NAME: BLESSING SYKES [facility] REC#: [id number] PT STATUS: REG ER : 1940 PHYSICIAN: ROHINI RUIZ MD ADMIT DATE: 11/07/21/ER Draft Date of Exam:11/07/21 ABDOMEN/KUB 1VIEW HISTORY: Abdominal pain, left flank pain COMPARISON: 06/01/2017. CT from 11/05/2021 TECHNIQUE: Frontal view of the abdomen FINDINGS: The previously seen 2 mm ureter in the left ureter is not well seen radiographically, but this may be secondary to the modality. There are phleboliths in the pelvis. There is moderate stool in the right colon. There are prominent loops of small bowel in the right abdomen. No large collection of free air is seen. IMPRESSION: 1. The previously described 2 mm calculus along the left mid ureter is not seen radiographically. There are phleboliths in the pelvis. 2. Moderate stool in the colon. Mildly prominent loops of small bowel in the right abdomen may be due to ileus. Dictated on workstation # [id number] Dict: 11/07/21 0527 Trans: 11/07/21 0535 [facility] [id number] Interpreted by: MARIAH GOODE MD Electronically signed by: (ROHINI RUIZ MD) Departure Impression Primary Impression: Ureterolithiasis Disposition: 01 HOME, SELF-CARE Condition: Improved Departure-Patient Inst. Decision time for Depature: 05:58 (ROHINI RUIZ MD) Referrals: MARY RUEDA DO (PCP/Family) Primary Care Physician MOISE AMARAL MD Patient Instructions: Renal Colic (DC) Add. Discharge Instructions: All discharge instructions reviewed with patient and/or family. Voiced understanding. Drink plenty of fluids and add water to your diet. You may also take ibuprofen 400 mg every 8 hours as needed for pain. Take other pain medications as prescribed. Follow-up with Dr. Amaral early next week for recheck and further evaluation. Call his office on Tuesday morning for appointment. Return for worse pain, fever, vomiting, weakness or other concerns as needed. Scripts Hydrocodone/Acetaminophen (Hydrocodone-Acetamin 7.5-325) 1 Each Tablet 1 EACH PO Q4H PRN for PAIN-MODERATE (5-7) for 3 Days, #16 TAB 0 Refills Prov: ROHINI RUIZ MD 11/07/21 Cephalexin (Cephalexin) 500 Mg Capsule 500 MG PO BID for 7 Days, #14 CAP 0 Refills Prov: ROHINI RUIZ MD 11/07/21 ROHINI RUIZ MD Nov 07, 2021 05:46 WENDY SUAREZ MD Nov 07, 2021 07:01
[2021-11-07 05:57] LABS: BAND NEUTROPHILS 1 %; LYMPHOCYTES % (MANUAL) 2 %; MONOCYTES % (MANUAL) 4 %; NEUTROPHILS % (MANUAL) 93 %
[2021-11-07] MEDS ORDERED: HYDR-3817 PO (06:04)
[2021-11-07] MEDS ORDERED: CEPH500C PO (06:04)
[2021-11-07 07:07] VITALS: BP 120/69
== END 2021-11-07 07:08 | disposition home or self-care (01) ==
LOC: EDUNIT# 04:39 → ER 04:42
DX: N20.1 Calculus of ureter (principal); E78.00 Pure hypercholesterolemia, unspecified; K21.9 Gastro-esophageal reflux disease without esophagitis; G89.29 Other chronic pain; M54.9 Dorsalgia, unspecified; Z79.899 Other long term (current) drug therapy
CPT/HCPCS: 36415; 74018; 80048; 85007; 85027